=== PATIENT | female | born 1950 | race Caucasian/White ===

== ENCOUNTER 2016-11-15 06:59 | Day surgery (SDC) | payer MEDICARE, OTHER ==
[~2016-11-15] VITALS: Ht 162.6 cm; Wt 82.8 kg
[~2016-11-15 06:59] MED LIST: ETOD500T2 PO
[2016-11-15 08:06] VITALS: Ht 162.6 cm; Wt 82.8 kg
[2016-11-15] MEDS ORDERED: MELOXICAM (08:13)
[2016-11-15 09:18] VITALS: BP 133/75; PULSE 80; RESP 18
[2016-11-15 10:10] VITALS: BP 110/66; RESP 20
[2016-11-15] MEDS ORDERED: MIDAZOLAM 1 MG/ML 2 ML INJ ONE ×2 (10:19)
[2016-11-15] MEDS ORDERED: FENTAnyl 50 MCG/ML VIAL ONE (10:19)
--- NOTE | 2016-11-16 04:48 | GILP ---
DATE OF PROCEDURE: PROCEDURE: Colonoscopy and biopsy. PREOPERATIVE DIAGNOSIS: The patient presenting with history of no GI problems. This is a screening colonoscopy to rule out colon polyps. POSTOPERATIVE DIAGNOSES: 1. A 5 mm flat polyp was noted in the proximal transverse colon. This was removed with help of bio psy forceps and a Hemoclip was applied to prevent bleeding. 2. Diverticulosis. 3. Minimal external hemorrhoids. DESCRIPTION OF PROCEDURE: After the informed written consent was obtained, the patient was asked to lie on the left lateral side. The patient was given 3 mg of Versed and 100 mcg of fentanyl. When the patient became somnolent, the Olympus video colonoscope was introduced into the rectum and scope was advanced all the way to the cecum. A 5 mm flat polyp was noted in the proximal transverse colo n. This appeared to be benign. Two biopsies were obtained and polyp was removed. Minimal oozing o f the blood was noted, hence, one Hemoclip was applied. Significant diverticulosis noted in the leyla cending colon. Rest of the colon up to the cecum appeared normal. On the way out, no additional ab normalities detected and retroflexion was performed and no internal hemorrhoids noted. When the sco pe was withdrawn, external hemorrhoids were noted as well and this is minimal and small in size. No bleeding. Scope was withdrawn and the procedure was terminated. PLAN: 1. Recommend wait for the pathology report. 2. Repeat colonoscopy in 5 years. Dictated By: LYNN AQUINO/ANGE Conf#: [id number] DID#: [id number] CC: Dr. Roland;*End*
== END 2016-11-15 13:19 | disposition home or self-care (01) ==
LOC: GIL 06:59
PROVIDERS: ATTEND Internal Medicine Gastroenterology
DX: R19.4 Change in bowel habit (principal); D12.3 Benign neoplasm of transverse colon; K64.4 Residual hemorrhoidal skin tags; K57.90 Diverticulosis of intestine, part unspecified, without perforation or abscess without bleeding
CPT/HCPCS: 45380; 88305; J2250; J3010

== ENCOUNTER → 2018-02-06 | Outpatient (CLI) | END | disposition home or self-care (01) ==

== ENCOUNTER → 2018-05-22 | Outpatient (CLI) | END | disposition home or self-care (01) ==

== ENCOUNTER → 2018-09-08 | Outpatient (CLI) | payer MEDICARE, OTHER ==
[~2018-09-08] MED LIST changes: -ETOD500T2 PO; +MELOXICAM
--- NOTE | 2018-09-08 18:36 | CONS ---
Consult Date/Type/Reason Admit Date/Time Initial Consult Date Date/Time of Note DATE: 09/08/18 TIME: 18:31 Subjective Patricia Armstrong is here today with osteoarthritis of the left knee. The patient has been having problems for the last several years. The patient rates the pain 9/10. The patient has failed conservative therapy. The patient is here for a preoperative visit. Objective Exam General: Alert, oriented x3. No Acute Distress. Heart: Regular rate and rhythm. Lungs: No respiratory distress. No accessory muscle use. Musculoskeletal: Left Knee This is a well developed female who is alert, oriented times three and in no apparent distress. Skin is intact over the left knee as well as the lower extremity with no abrasions, lacerations, or ulcerations. Observation of the patient's gait reveals an antalgic gait with Varus thrust. Frontal plane alignment is varus. There is pain on palpation of medial greater than lateral joint line. The patient demonstrates grinding anteriorly with ROM. Range of motion: 0 extension to approximately 130 degrees of flexion. Collateral ligament testing reveals pseudolaxity of the MCL at 30 degrees with some subluxation of the tibia, otherwise no instability with varus or valgus stress at 0 and 30 degrees of flexion. Negative Winston's and negative posterior drawer. Neurovascularly intact with 5/5 EHL/tibialis anterior/gastroc. Sensation intact to light touch in a sural, saphenous, deep peroneal, superficial peroneal, medial and lateral plantar nerve distribution. Palpable, symmetric dorsalis pedis and posterior tibial pulses in both lower extremities. Hip examination normal. Results/Medications Home Meds Reported Medications [Meloxicam] No Conflict Check 11/15/16 Assessment/Plan Hospital Course (Demo Recall) The patient has osteoarthritis of the left knee involving primarily the medial compartment(s). The patient has failed conservative treatment. Medical Clearance pending. Patient seen PCP on September 13 ----- A lengthy discussion ensued, where the patient was told that if and when the symptoms are intolerable, elective total knee replacement should be considered. The operative procedure was explained using diagrams and or three-dimensional models. The rehabilitation, the potential risks, benefits and alternatives were discussed at length. Specific risks discussed included but were not limited to excessive blood loss and the need for transfusion and therefore the risk of transmissible disease or transfusion reaction, deep infection and the potential need for repetitive debridements, implant removal, long-term antibiotic therapy, possibly requiring deep venous access, extensor mechanism complications, including subluxation or dislocation, disruption of the quadriceps or patellar tendon, fracture of the patella or avulsion of the tibial tuberosity, femoral, tibial or fibular fracture and the need for further surgery for fixation, neurovascular injury with temporary or permanent numbness, tingling, weakness or paralysis, arterial injury requiring surgery including possible amputation, deep venous thrombosis, pulmonary embolism and , persistent pain, weakness, or limp, late aseptic loosening and the need for revision, polyethylene wear- induced osteolysis and related problems, post-operative stiffness requiring closed manipulation, and finally, a wide variety of unanticipated medical problems. The opportunity to ask questions and address any concerns was provided. The patient would like to proceed with scheduling. Face to Face Evaluation for Home Health Care: This is to certify that after date of planned surgery patient will be in need of intermittent fpc care, physical therapy and/or occupational therapy as patient will be home bound. This patient is under my care and I have authorized the services on this plan of care and will periodically review the plan. Plan: Left TKA VTE risk stratification: Average. However patient states that she is allergic to aspirin. She gets a rash. This was many many years ago. VTE prophylaxis: If Patient is truly allergic to aspirin will give patient Lovenox for 2 weeks followed by a 10a inhibitor Diabetes management: None Pain control: Standard Telemetry: No MRSA: Pending JOSEF MARKS MD Sep 08, 2018 18:36
--- NOTE | 2018-09-13 13:54 | RADRPT ---
PROCEDURE: Limited x-ray of both lower extremities. CLINICAL INDICATION: Bilateral leg pain. TECHNIQUE: Single frontal view of both lower extremities was obtained from the hips to the calves. COMPARISON: None. FINDINGS: The right femur measures 55 cm. The left femur measures 57 cm. The right and left distal tibias are not included on the images. There are degenerative changes of both knees with bilateral medial joint compartment narrowing. IMPRESSION: 1. Right femur is shorter than left femur. 2. Degenerative changes of both knees with bilateral medial joint compartment narrowing. 3. The tibial lengths cannot be measured. RPTAT: QQ .Clifton Eagle MD, MD Date Time Electronically viewed and signed by .Clifton Eagle MD, on 09/13/2018 13:54 .R/
--- NOTE | 2018-09-13 13:55 | RADRPT ---
PROCEDURE: Limited x-ray of both lower extremities. CLINICAL INDICATION: Bilateral leg pain. TECHNIQUE: This is a limited study demonstrating only a frontal view of the mid pelvis and left hip . COMPARISON: None. FINDINGS: There is no gross abnormality of the visualized osseous structures. IMPRESSION: 1. Limited study with no gross abnormality. RPTAT: QQ .Clifton Eagle MD, MD Date Time Electronically viewed and signed by .Clifton Eagle MD, MD on 09/13/2018 13:55 .R/
--- NOTE | 2018-09-13 13:56 | RADRPT ---
PROCEDURE: Limited x-ray of both lower extremities. CLINICAL INDICATION: Bilateral leg pain. TECHNIQUE: This is a limited study due to patient motion. COMPARISON: None. FINDINGS: Limited study due to patient motion. IMPRESSION: 1. Limited study due to patient motion. The images will be reprocessed. RPTAT: QQ .Clifton Eagle MD, MD Date Time Electronically viewed and signed by .Clifton Eagle MD, on 09/13/2018 13:56 .R/
== END | disposition home or self-care (01) ==
LOC: HKI 13:48
PROVIDERS: ATTEND Orthopaedic Surgery Adult Reconstructive Orthopaedic Surgery
DX: M17.12 Unilateral primary osteoarthritis, left knee (principal)
CPT/HCPCS: 77073; G0463

== ENCOUNTER 2018-09-19 05:15 | Observation (INO) | payer MEDICARE, OTHER ==
[2018-09-11 13:33] VITALS: Ht 160 cm; Wt 81.4 kg
[~2018-09-19] VITALS: Ht 160 cm; Wt 81.4 kg
[2018-09-19] VITALS (21 sets, daily range): BP systolic 103–147; BP diastolic 54–87; PULSE 68–100; RESP 7–23
[2018-09-19] MEDS ORDERED: ACETAMINOPHEN 500 MG TAB PO ONE (06:00)
[2018-09-19] MEDS ORDERED: ACETAMINOPHEN 1000MG/100ML IV 100 ML IVPB ONE (06:00)
[2018-09-19] MEDS ORDERED: CELECOXIB 200 MG CAP PO ONE (06:00)
[2018-09-19] MEDS ORDERED: DEXAMETHASONE 4 MG/ML 1 ML INJ IV ONE (06:00)
[2018-09-19] MEDS ORDERED: LANSOPRAZOLE 30 MG CAP PO ONE (06:00)
[2018-09-19] MEDS ORDERED: ONDANSETRON 4 MG INJ IV ONE (06:00)
[2018-09-19] MEDS ORDERED: TRANEXAMIC ACID 1GM/100ML(PMX) 100 ML PRE-OP IVPB ONE (06:00)
[2018-09-19] MEDS ORDERED: CEFAZOLIN 2 GM/50 ML (PMX) 50 ML IVPB ONE (06:00)
[2018-09-19] MEDS: LACTATED RINGER'S 1,000 ML IV* SCH ×2 (06:00→14:00)
[2018-09-19] MEDS ORDERED: TRANEXAMIC ACID 1GM/100ML(PMX) 100 ML AT CLOSING IVPB ONE (06:00)
[2018-09-19] MEDS ORDERED: METH10TA5 PO (07:17)
[2018-09-19] MEDS ORDERED: CRES5 PO (07:18)
[2018-09-19] MEDS ORDERED: NORT10CA2 PO (07:20)
[2018-09-19] MEDS ORDERED: VITA200C45 PO (07:20)
[2018-09-19] MEDS ORDERED: ASCO500C7 PO (07:21)
[2018-09-19] MEDS ORDERED: CHOL100062 PO (07:21)
[2018-09-19] MEDS ORDERED: CALC500T91 PO (07:22)
--- NOTE | 2018-09-19 07:23 | PREAC ---
Date/Time of Note Date/Time of Note DATE: 09/19/18 TIME: 07:21 Anesthesia Eval and Record Evaluation Time Pre-Procedure Interview DATE: 09/19/18 TIME: 07:21 Age 68 Sex female NPO: 8 hrs Preoperative diagnosis left knee primary osteoarthritis Planned procedure left total knee arthroplasty Past Medical History Past Medical History: Includes Cardio: Dyslipidemia Endo: Hyperthyroid Musculoskeletal: Osteoarthritis Surgery & Anesthesia Issues No known issue Meds Anticoagulation: No Beta Byron within 24 hr: No Reason Beta Byron not given: Pt. not on B-Byron Reported Medications Ascorbic Acid* (Vitamin C*) 500 Mg Capsule.sa, 500 MG PO DAILY, CAP 09/19/18 Cholecalciferol* (Vitamin D3*) 1,000 Unit Tablet, 25 MCG PO DAILY, TAB 09/19/18 Vitamin E* (Vitamin E*) 200 Unit Capsule, 180 MG PO DAILY, CAP 09/19/18 Nortriptyline Hcl* (Nortriptyline Hcl*) 10 Mg Capsule, 10 MG PO HS, CAP 09/19/18 Rosuvastatin Calcium* (Crestor*) 5 Mg Tablet, 5 MG PO QHS, #30 TAB 09/19/18 Methimazole* (Methimazole*) 10 Mg Tablet, 10 MG PO DAILY, TAB 09/19/18 Discontinued Reported Medications [Meloxicam] No Conflict Check 11/15/16 Current Medications Lactated Ringer's 1,000 ml @ 125 mls/hr Q8H IV* ; Start 09/19/18 at 06:00; Stop 09/19/18 at 18:00 Meds reviewed: Yes Allergies Coded Allergies: No Known Allergy (Unverified , 09/19/18) Allergies Reviewed: Yes Labs/Studies Labs Reviewed: Reviewed by anesthesiologist Blood Bank Test 09/19/18 06:00 Blood Type O POSITIVE test: N/A Studies: ECG (nsr) Pre-procedure Exam Airway: Adequate mouth opening, Adequate thyromental dist Mallampati: Mallampati II Teeth: Normal Lung: Normal Heart: Normal ASA Physical Status ASA physical status: 2 Emergency: None Planned Anesthetic General/MAC: LMA Neuraxial: Spinal Planned Pain Management Sub-arachniod narcotics, Parenteral pain med Pre-operative Attestations Prior to commencing anesthesia and surgery, the patient was re-evaluated, there was verification of: *The patient's identity *The results of appropriate recent lab work and preoperative vital signs *The above evaluation not changing prior to induction *Anesthetic plan, risk benefits, alternative and complications discussed with patient/family; questions answered; patient/family understands, accepts and wishes to proceed. TASHA DAMIAN MD Sep 19, 2018 07:23
--- NOTE | 2018-09-19 07:26 | HPN ---
Date/Time of Note Date/Time of Note DATE: 09/19/18 TIME: 07:26 Interval H&P Admission Note Pt. seen H&P reviewed: No system changes Patient denies fever, chills, shortness of breath, chest pain, nausea/vomiting, constipation, diarrhea, numbness, and tingling. MUSCULOSKELETAL: Left lower extremity Skin intact Sensation intact to light touch in a sural, saphenous, deep peroneal, superficial peroneal, medial and lateral plantar nerve distribution. Motor is intact, patient able to dorsiflex and plantarflex ankle and extend and flex great toe. Dorsalis Pedis pulse +2, Brisk capillary refill. Compartments are soft. Calves non-tender to palpation bilaterally. JOSEF MARKS MD Sep 19, 2018 07:26
[2018-09-19] MEDS ORDERED: HYDROmorphONE 1 MG/5 ML IV SYRINGE IV PRN ×3 (07:30)
[2018-09-19] MEDS ORDERED: MEPERIDINE 25 MG INJ IV PRN (07:30)
[2018-09-19] MEDS ORDERED: ONDANSETRON 4 MG INJ IV PRN (07:30)
[2018-09-19] MEDS ORDERED: FENTAnyl 50 MCG/ML VIAL IV PRN (07:30)
[2018-09-19] MEDS ORDERED: EPHEDrine SULFATE 50 MG/5 ML SYG IV PRN (07:30)
[2018-09-19] MEDS ORDERED: LABETALOL HCL 20MG INJ IV PRN (07:30)
[2018-09-19] MEDS ORDERED: PROCHLORPERAZINE 10 MG INJ IV PRN (07:30)
[2018-09-19] MEDS ORDERED: DIPHENHYDRAMINE 50 MG INJ IV PRN ×2 (07:30→11:30)
[2018-09-19] MEDS ORDERED: TRANEXAMIC ACID 1GM/100ML(PMX) 200 ML ONE (07:30)
[2018-09-19] MEDS ORDERED: hydrALAzine 20 MG INJ IV PRN (07:30)
[2018-09-19] MEDS ORDERED: LIDOCAINE 2% (SDV) 5 ML INJ ONE (07:31)
[2018-09-19] MEDS ORDERED: PROPOFOL 20 ML ONE (07:31)
[2018-09-19] MEDS ORDERED: MIDAZOLAM 1 MG/ML 2 ML INJ ONE (07:32)
[2018-09-19] MEDS ORDERED: FENTAnyl 50 MCG/ML VIAL ONE ×2 (07:44→09:45)
[2018-09-19] MEDS ORDERED: CEFAZOLIN 1 GM INJ ONE (07:50)
[2018-09-19] MEDS ORDERED: PHENYLephrine (100 MCG/ML) 5ML SYG ONE (08:10)
[2018-09-19] MEDS ORDERED: ROPIVACAINE 0.2% 20 ML VIAL ONE (10:56)
--- NOTE | 2018-09-19 11:19 | OPR ---
Date/Time of Note Date/Time of Note DATE: 09/19/18 TIME: 11:16 Operative Report Procedure Date: Sep 19, 2018 Preoperative Diagnosis Left knee osteoarthritis Postoperative Diagnosis As above Operation/Procedure Performed Left total knee arthroplasty intraoperative use of medication Surgeon see signature line Lard Maker CHERYL Bertrand Anesthesia Type: MAC, spinal Tourniquet Time: 100 minutes Estimated Blood Loss: 10 - 50 ml's Transfusion none Specimen None Grafts/Implants Depuy Sigma Femur: size 2.5 PS Tibia: Size 2 Poly insert: size 2 PS, 12.5 mm thickness Patella: 32 mm Complications none Pt Condition Post Procedure: stable Disposition: PACU Procedure Description PREOP DIAGNOSIS: Left knee osteoarthritis POSTOP DIAGNOSIS: Same. SURGICAL PROCEDURE: Left total knee arthroplasty. Intraoperative use of navigation CPT CODE: 06357. INDICATIONS AND CONSENT: The patient is a 68 year-old woman, with an orthopaedic history consistent with progressively worsening knee pain. They have maximized nonoperative measures, which have included activity modification, medicines, intra-articular injec tions. On physical exam, they have very alignment, no previous open surgical scars. They have ROM 0-130 degrees, no gross ligamentous instability. No significant venous stasis or edema. Distally neurovascular intact. They were offered a knee replacement. A lengthy discussion ensued, where the patient was told that if and when the symptoms are intolerable, elective total knee replacement should be considered. The operative procedure was explained using diagrams and or three-dimensional models. The rehabilitation, the potential risks, benefits and alternatives were discussed at length. Specific risks discussed included but were not limited to excessive blood loss and the need for transfusion and therefore the risk of transmissible disease or transfusion reaction, deep infection and the potential need for repetitive debridements, implant removal, long-term antibiotic therapy, possibly requiring deep venous access, extensor mechanism complications, including subluxation or dislocation, disruption of the quadriceps or patellar tendon, fracture of the patella or avulsion of the tibial tuberosity, femoral, tibial or fibular fracture and the need for further surgery for fixation, neurovascular injury with temporary or permanent numbness, tingling, weakness or paralysis, arterial injury requiring surgery including possible amputation, deep venous thrombosis, pulmonary embolism and , persistent pain, weakness, or limp, late aseptic loosening and the need for revision, polyethylene wear- induced osteolysis and related problems, post-operative stiffness requiring closed manipulation, and finally, a wide variety of unanticipated medical pro blems. The opportunity to ask questions and address any concerns was provided. The patient elected to proceed with TKA. FINDINGS: No SURGERY IN DETAIL: Patient was taken into the Operating Room, placed supine on the operating table. Preoperatively, they were given weight-based dosing of Ancef and if MRSA positive vancomycin was given in addition. Tourniquet was placed to the left proximal thigh. Regional anesthesia was administered by Anesthesia Department. Left lower extremity was prepped and draped in sterile fashion. Surgical pause was performed, correctly identifying the patient's name, medical record number, diagnoses, surgical procedure, and laterality of procedure. The leg was elevated, exsanguinated with an Esmarch, tourniquet was inflated to 250 mmHg, remained inflated for 100 minutes, after which it was deflated. An anterior midline incision approximately 15-20 cm in length was made, centered over the patella ending just medial to the tibial tubercle. Skin and subcutaneous tissue sharply dissected down the Sharron's fascia superiorly, which was incised in line with skin incision. The quadriceps tendon, medial patellar retinaculum, patellar tendon were visualized. A medial parapatellar arthrotomy was performed. The proximal medial tibia was subperiosteally exposed for a distance of 4 cm from joint line. The deep infrapatellar bursa was incised. The patella was everted and the knee was flexed, while protecting the insertion of patellar tendon. A 3/8-inch curved osteotome was used to enter the semimembranosus bursa at the level of the joint line medially. Medial meniscus was excised at the meniscal-synovial junction. The anterior cruciate ligament was excised. The posterior cruciate ligament was excised with electrocautery from the intercondylar region and a posterior retractor was placed, subluxating the tibia anterolateral to the femur. A hernia was made anterolateral to the lateral meniscus and a right-angle retractor was placed over the anterolateral tibia. A lateral meniscectomy was performed. The inferior lateral geniculate artery was coagulated. The tibia was reduced under the femur. An intramedullary pin was placed for the OrthAlign device. The OrthAlign navigation unit and sensor were calibrated at the back table. The OrthAlign femoral cutting jig was then placed over the central pin, and secured with a medial and lateral pin. The OrthAlign navigation unit and OrthAlign sensor were then attached to the jig. The leg was maneuvered for appropriate capture and calibration. After this was performed, the navigation unit was adjusted for a 0 varus/valgus (neutral mechanical axis) and 2.0-2.5 degree posterior flexion cut. The cutting jig was locked in place. The navigation and sensor unit were then removed. The distal femoral cut was set at 9 mm for the osteotomy . This was then secured with two pins. A distal femoral osteotomy was performed. The OrthAlign femoral jig was then removed. A posterior retractor was placed and an anterolateral retractor was placed on the tibia, subluxating the tibia anterior to the femur. The OrthAlign tibial cutting jig was then applied to the tibia preliminarily with the strap. This was secured with two pins centered over the medial 1/3 of the tibial tubercle. The offset was established proximally at the ACL footprint. This was then matched distally. Registration was then performed, registering the lateral malleolus and the medial malleolus. After this was performed, the malleolar probe was then utilized to help set the appropriate varus/valgus as well as tibial slope. This was then locked into position. The navigation guide and sensor were then removed. The slotted tibial cutting jig was then applied and secured with two pins. A proximal tibia osteotomy was performed. The tibia was then brought to full extension and a 10 mm spacer block was inserted, and felt to be satisfactory extension gap. The knee was flexed again and the tibial alignment guide was then removed. With the knee flexed to 90 degrees a femoral sizing jig was placed on the distal femur and secured, the femur sized to a size 2.5. Due to preoperative varus deformity, this was then set on 3 degrees of empiric external rotation, using the posterior condyles. This was parallel to the epicondylar axis. A size 2.5 4-in-1 femoral cutting block was then secured to the femur with two lock pins and an anterior, posterior condylar cut were performed, followed by an anterior chamfer and a posterior chamfer cut. Cutting block was removed. A 12.5 mm spacer was then inserted at 90 degrees of flexion and this was symmetric with the extension gap. An intercondylar box osteotomy was performed using the box cutting guide. A trial tibial base plate, size 2 with a posterior cruciate sacrificing polyethylene, and a trial size 2.5 femur were then inserted and the knee was brought to full extension. The patella was everted and the osteochondral junction was exposed. The patella measured 20 mm in thickness. A patellar osteotomy performed leaving 12.5 mm remnant patella. Three lug holes were drilled for the 32 mm diameter patellar button. The knee then underwent range of motion, soft tissue tension and patellar tracking, everything was symmetric balanced. The patella tracked centrally. The rotation of the tibial component was marked on the tibia. On the tibia, the modular base plate hole was created with the appropriate drills and punches at previously marked rotation. Exposed bony surfaces were thoroughly irrigated and dried. Periarticular injection administered. Cement with antibiotics was mixed at the back table. At the appropriate time and consistency cement was placed in the keel and onto the tibial plateau. Cement was finger pressurized. Cement was placed on the backside of the tibial component and along the keel. The tibial component was placed by hand into the keel and was then impacted and extruded cement removed. Cement was applied to exposed bone of the femur, as well as the posterior condylar portion prostheses, and the femoral component was inserted, extruded cement was then removed. The knee was brought to full extension. Cement was applied to the patella, as well as the patellar button, which was clamped into position. Extruded cement was removed. After the cement completely dried, the knee was flexed, the trial polyethylene was removed. Scored cement was removed. A tourniquet was deflated. Hemostasis was obtained. Pulse lavage was used to irrigate and remove any loose debris from posterior knee. A formal size 2, 12.5 mm polyethylene was inserted, confirmed seated and locked. The knee was reduced, hemostasis obtained. Copious amounts of irrigation was used with pulse lavage to remove and loose debris. The arthrotomy was closed with 1 PDS in a [id number], interrupted fashion, subcutaneous tissues irrigated, closed with 2-0 Vicryl in an inverted, interrupted fashion. The skin was closed with kamran. A sterile dressing was applied. Sponge, needle and instrument counts were correct at the end of the case. DISPOSITION: Patient transferred to PACU in stable condition. The patient will be weight bearing as tolerated on the operative extremity. PT will begin POD #0 if available. Postoperative AP and lateral of the operative knee will be ordered in PACU. Bilateral knee high SCDs will be worn while admitted. ASA 81mg BID will be given for DVT prophylaxis for 6 weeks. In her history she is stated previously she is allergic to aspirin. However she recently has taken aspirin with no adverse reaction. Therefore we will continue to use aspirin for DVT prophylaxis. Pain will be controlled with medication. The patient will follow up in clinic in approximately 2 weeks. ESTIMATED BLOOD LOSS: 30 mL. CULTURES: None. PATHOLOGY: Bone. IMPLANTS: Depuy Sigma Femur: size 2.5 PS Tibia: Size 2 Poly insert: size 2 PS, 12.5 mm thickness Patella: 32 mm NAME OF SURGEONS AND ASSISTANTS: Surgeon: Josef Alfonso MD Lard Maker: JOSEF Lima MD Sep 19, 2018 11:19
--- NOTE | 2018-09-19 11:29 | PAC ---
Date/Time of Note Date/Time of Note DATE: 09/19/18 TIME: 11:28 Post-Anesthesia Notes Post-Anesthesia Note Last documented vital signs Vital Signs Date Temp Pulse Resp B/P (MAP) Pulse Ox O2 O2 Flow FiO2 Time Delivery Rate 09/19/18 98.0 11:20 Activity: WNL Respiratory function: WNL Cardiovascular function: WNL Mental status: Baseline Pain reasonably controlled: Yes Hydration appropriate: Yes Nausea/Vomiting absent: Yes Comments BP: 121/87 HR: 99 RR: 15 T: 98 SaO2: 95% TASHA DAMIAN MD Sep 19, 2018 11:29
[2018-09-19] MEDS ORDERED: BETHANECHOL 25 MG TAB PO PRN (11:30)
[2018-09-19] MEDS ORDERED: BISACODYL 10 MG SUPP PR PRN (11:30)
[2018-09-19] MEDS ORDERED: oxyCODONE 5 MG TAB PO PRN (11:30)
[2018-09-19] MEDS ORDERED: MAGNESIUM HYDROXIDE 30ML CUP PO PRN (11:30)
[2018-09-19] MEDS ORDERED: NALOXONE (0.4 MG/ML) INJ IV PRN (11:30)
[2018-09-19] MEDS ORDERED: DOCUSATE SODIUM 100 MG CAP PO ONE (11:30)
[2018-09-19] MEDS ORDERED: NACL 0.9% 3 ML SYG IV SCH (11:30)
[2018-09-19] MEDS ORDERED: NA PHOSPHATE/BIPHOS 133 ML ENEMA PR PRN (11:30)
[2018-09-19] MEDS: LACTATED RINGER'S 1,000 ML IV SCH ×2 (11:54→23:54)
--- NOTE | 2018-09-19 11:59 | CONS ---
Assessment/Plan Assessment/Plan Hospital Course (Demo Recall) 68-year-old female with comorbidities including hyperthyroidism, dyslipidemia, and left knee osteoarthritis who underwent a left total knee arthroplasty and is being admitted to inpatient setting for further monitoring. 1. Left knee osteoarthritis. -Status post left total knee arthroplasty on 09/19/2018. -Continue pain control. -Weightbearing and physical therapy as per orthopedic surgery. -Anticoagulation as per orthopedic surgery. 2. Hyperthyroidism. -Resume Tapazole. 3. Dyslipidemia. -Resume statins. CODE STATUS: Full code. Diet: Regular diet. DVT prophylaxis: As per orthopedic surgery. Additional diagnostic and therapeutic orders will be added as clinically indicated. We will continue to follow the patient along with you. Thank you Dr. Alfonso for allowing us to take part in this patient's care. The patient was seen in collaboration with Dr. Mckenzie. Consultation Date/Type/Reason Admit Date/Time Sep 19, 2018 at 05:15 Date of Consultation: Sep 19, 2018 Type of Consult Medical. Reason for Consultation Medical management. Requesting Provider: JOSEF ALFONSO MD Date/Time of Note DATE: 09/19/18 TIME: 11:59 Hx of Present Illness This is a 68-year-old female with a past medical history of dyslipidemia, left knee osteoarthritis, and hyperthyroidism who was brought in electively for a left total knee arthroplasty. The patient underwent a left total knee arthroplasty on 09/19/2018. The patient is being admitted to inpatient setting for further monitoring. Hospitalist consult was obtained for medical management. Constitutional: no complaints Eyes: no complaints ENT: no complaints Respiratory: no complaints Cardiovascular: no complaints Gastrointestinal: no complaints Genitourinary: no complaints Musculoskeletal: bone/joint pain Skin: no complaints Neurologic: no complaints Endocrine: no complaints Psychological: no complaints Immunologic: no complaints Past Medical History 1. Dyslipidemia. 2. Hyperthyroidism. Home Meds Reported Medications Calcium Carbonate ([id number]) 500 Mg Tablet, 600 MG PO DAILY, TAB 09/19/18 Ascorbic Acid* (Vitamin C*) 500 Mg Capsule.sa, 500 MG PO DAILY, CAP 09/19/18 Cholecalciferol* (Vitamin D3*) 1,000 Unit Tablet, 25 MCG PO DAILY, TAB 09/19/18 Vitamin E* (Vitamin E*) 200 Unit Capsule, 180 MG PO DAILY, CAP 09/19/18 Nortriptyline Hcl* (Nortriptyline Hcl*) 10 Mg Capsule, 10 MG PO HS, CAP 09/19/18 Rosuvastatin Calcium* (Crestor*) 5 Mg Tablet, 5 MG PO QHS, #30 TAB 09/19/18 Methimazole* (Methimazole*) 10 Mg Tablet, 10 MG PO DAILY, TAB 09/19/18 Discontinued Reported Medications [Meloxicam] No Conflict Check 11/15/16 Medications Current Medications Lactated Ringer's 1,000 ml @ 125 mls/hr Q8H IV* ; Start 09/19/18 at 06:00; Stop 09/19/18 at 18:00 Hydromorphone HCl (Dilaudid) 0.2 mg PACU PRN IV MILD PAIN 1-3; Start 09/19/18 at 07:30; Stop 09/19/18 at 15:00 Hydromorphone HCl (Dilaudid) 0.4 mg PACU PRN IV MOD PAIN 4-6; Start 09/19/18 at 07:30; Stop 09/19/18 at 15:00 Hydromorphone HCl (Dilaudid) 0.6 mg PACU PRN IV SEVERE PAIN 7-10; Start 09/19/18 at 07:30; Stop 09/19/18 at 15:00 Fentanyl (Sublimaze) 25 mcg PACU ORDER PRN IV MILD PAIN 1-3; Start 09/19/18 at 07:30; Stop 09/19/18 at 15:00 Ondansetron HCl (Zofran Inj) 4 mg PACU ORDER PRN IV NAUSEA/VOMITING; Start 09/19/18 at 07:30; Stop 09/19/18 at 15:00 Prochlorperazine (Compazine Inj) 5 mg PACU ORDER PRN IV NAUSEA/VOMITING; Start 09/19/18 at 07:30; Stop 09/19/18 at 15:00 Labetalol HCl (Labetalol) 5 mg PACU ORDER PRN IV HIGH BLOOD PRESSURE; Start 09/19/18 at 07:30; Stop 09/19/18 at 15:00 Hydralazine HCl (Apresoline) 5 mg PACU ORDER PRN IV HIGH BLOOD PRESSURE; Start 09/19/18 at 07:30; Stop 09/19/18 at 15:00 Ephedrine Sulfate 5 mg PACU ORDER PRN IV BLOOD PRESSURE SUPPORT; Start 09/19/18 at 07:30; Stop 09/19/18 at 15:00 Meperidine HCl (Demerol) 25 mg PACU ORDER PRN IV .RIGORS; Start 09/19/18 at 07:30; Stop 09/19/18 at 15:00 Diphenhydramine HCl (Benadryl) 25 mg PACU ORDER PRN IV .PRURITUS; Start 09/19/18 at 07:30; Stop 09/19/18 at 15:00 Lactated Ringer's 1,000 ml @ 80 mls/hr [id number] IV ; Start 09/19/18 at 11:05; Status UNV IV Flush (NS 3 ml) 3 ml PER PROTOCOL IV ; Start 09/19/18 at 11:30; Status UNV Oxycodone HCl (Roxicodone) 15 mg Q4H PRN PO .PAIN; Start 09/19/18 at 11:30; Status UNV Oxycodone HCl (Roxicodone) 10 mg Q4H PRN PO .PAIN; Start 09/19/18 at 11:30; Status UNV Oxycodone HCl (Roxicodone) 5 mg Q4H PRN PO .PAIN; Start 09/19/18 at 11:30; Status UNV Hydromorphone HCl (Dilaudid) 1 mg Q3H PRN IV .BREAKTHROUGH PAIN; Start 09/19/18 at 11:30; Status UNV Acetaminophen (Tylenol Tab) 1,000 mg Q8 PO ; Start 09/20/18 at 14:00; Status UNV Ondansetron HCl (Zofran Inj) 4 mg Q4H PRN IV NAUSEA/VOMITING; Start 09/20/18 at 11:30; Status UNV Cefazolin Sodium/ Dextrose 50 ml @ 100 mls/hr Q8H IVPB ; Start 09/19/18 at 11:30; Stop 09/20/18 at 03:59; Status UNV Gabapentin (Neurontin) 300 mg QHS PO ; Start 09/19/18 at 21:00; Status UNV Pantoprazole (Protonix Tab) 40 mg DAILY@06 PO ; Start 09/21/18 at 06:00; Status UNV Docusate Sodium (Colace) 200 mg NOW ONCE PO ; Start 09/19/18 at 11:30; Stop 09/19/18 at 11:31; Status UNV Docusate Sodium (Colace) 200 mg BID PO ; Start 09/20/18 at 09:00; Stop 09/23/18 at 08:59; Status UNV Simethicone (Mylicon) 80 mg TID PRN PO .GAS; Start 09/19/18 at 11:30; Status UNV Senna/Docusate Sodium (Senokot-S) 2 tab BID PRN PO .CONSTIPATION; Start 09/19/18 at 11:30; Status UNV Magnesium Hydroxide (Milk Of Mag) 30 ml HS PRN PO .CONSTIPATION; Start 09/19/18 at 11:30; Status UNV Bisacodyl (Dulcolax Supp) 10 mg DAILY PRN AR .CONSTIPATION; Start 09/19/18 at 11:30; Status UNV Sodium Biphosphate/ Sodium Phosphate (Fleet Enema) 133 ml DAILY PRN AR .CONSTIPATION; Start 09/19/18 at 11:30; Status UNV Diphenhydramine HCl (Benadryl) 25 mg Q4H PRN IV .ITCHING; Start 09/19/18 at 11:30; Status UNV Naloxone HCl (Narcan) 0.2 mg Q2M PRN IV .RESP RATE; Start 09/19/18 at 11:30; Status UNV Bethanechol Chloride (Urecholine) 25 mg URINARY CATH D/C PRN PO UNABLE TO VOID; Start 09/19/18 at 11:30; Status UNV Aspirin (Halfprin) 81 mg BID PO ; Start 09/20/18 at 09:00; Status UNV Allergies: Coded Allergies: No Known Allergy (Unverified , 09/19/18) Past Surgical History Past Surgical Hx: other (Right knee arthroscopy.) Social History The patient lives at home with her family. Alcohol Use: none Smoking Status: Never smoker Drug Use: none Exam/Review of Systems Exam Vitals Vital Signs Date Temp Pulse Resp B/P (MAP) Pulse Ox O2 O2 Flow FiO2 Time Delivery Rate 09/19/18 98.0 11:20 Exam General: Adequately build 68 year-old female lying in bed in no apparent distress. HEENT: Normocephalic, atraumatic. Eyes: Anicteric sclerae, conjunctivae clear. ENT: Nasal septum midline, oral mucosa moist. Neck supple, no JVD noticed. Respiratory: Bilaterally diminished breath sounds. No use of accessory muscles of respiration. No adventitious breath sounds. Cardiovascular: S1, S2 heard. Regular rate and rhythm. Abdomen: Soft, nontender, and nondistended. Bowel sounds positive in all 4 quadrants. Genitourinary: Deferred. Extremities: No cyanosis, no clubbing, no edema. Left knee surgical dressing. Peripheral pulses palpable. Neurologic: Cranial nerves II through XII grossly intact. The patient is awake, alert, and oriented. Skin: Normal skin turgor. No skin rashes. Medications Medication Current Medications Lactated Ringer's 1,000 ml @ 125 mls/hr Q8H IV* ; Start 09/19/18 at 06:00; Stop 09/19/18 at 18:00 Hydromorphone HCl (Dilaudid) 0.2 mg PACU PRN IV MILD PAIN 1-3; Start 09/19/18 at 07:30; Stop 09/19/18 at 15:00 Hydromorphone HCl (Dilaudid) 0.4 mg PACU PRN IV MOD PAIN 4-6; Start 09/19/18 at 07:30; Stop 09/19/18 at 15:00 Hydromorphone HCl (Dilaudid) 0.6 mg PACU PRN IV SEVERE PAIN 7-10; Start 09/19/18 at 07:30; Stop 09/19/18 at 15:00 Fentanyl (Sublimaze) 25 mcg PACU ORDER PRN IV MILD PAIN 1-3; Start 09/19/18 at 07:30; Stop 09/19/18 at 15:00 Ondansetron HCl (Zofran Inj) 4 mg PACU ORDER PRN IV NAUSEA/VOMITING; Start 09/19/18 at 07:30; Stop 09/19/18 at 15:00 Prochlorperazine (Compazine Inj) 5 mg PACU ORDER PRN IV NAUSEA/VOMITING; Start 09/19/18 at 07:30; Stop 09/19/18 at 15:00 Labetalol HCl (Labetalol) 5 mg PACU ORDER PRN IV HIGH BLOOD PRESSURE; Start 09/19/18 at 07:30; Stop 09/19/18 at 15:00 Hydralazine HCl (Apresoline) 5 mg PACU ORDER PRN IV HIGH BLOOD PRESSURE; Start 09/19/18 at 07:30; Stop 09/19/18 at 15:00 Ephedrine Sulfate 5 mg PACU ORDER PRN IV BLOOD PRESSURE SUPPORT; Start 09/19/18 at 07:30; Stop 09/19/18 at 15:00 Meperidine HCl (Demerol) 25 mg PACU ORDER PRN IV .RIGORS; Start 09/19/18 at 07:30; Stop 09/19/18 at 15:00 Diphenhydramine HCl (Benadryl) 25 mg PACU ORDER PRN IV .PRURITUS; Start 09/19/18 at 07:30; Stop 09/19/18 at 15:00 Lactated Ringer's 1,000 ml @ 80 mls/hr [id number] IV ; Start 09/19/18 at 11:05; Status UNV IV Flush (NS 3 ml) 3 ml PER PROTOCOL IV ; Start 09/19/18 at 11:30; Status UNV Oxycodone HCl (Roxicodone) 15 mg Q4H PRN PO .PAIN; Start 09/19/18 at 11:30; Status UNV Oxycodone HCl (Roxicodone) 10 mg Q4H PRN PO .PAIN; Start 09/19/18 at 11:30; Status UNV Oxycodone HCl (Roxicodone) 5 mg Q4H PRN PO .PAIN; Start 09/19/18 at 11:30; Status UNV Hydromorphone HCl (Dilaudid) 1 mg Q3H PRN IV .BREAKTHROUGH PAIN; Start 09/19/18 at 11:30; Status UNV Acetaminophen (Tylenol Tab) 1,000 mg Q8 PO ; Start 09/20/18 at 14:00; Status UN V Ondansetron HCl (Zofran Inj) 4 mg Q4H PRN IV NAUSEA/VOMITING; Start 09/20/18 at 11:30; Status UNV Cefazolin Sodium/ Dextrose 50 ml @ 100 mls/hr Q8H IVPB ; Start 09/19/18 at 11:30; Stop 09/20/18 at 03:59; Status UNV Gabapentin (Neurontin) 300 mg QHS PO ; Start 09/19/18 at 21:00; Status UNV Pantoprazole (Protonix Tab) 40 mg DAILY@06 PO ; Start 09/21/18 at 06:00; Status UNV Docusate Sodium (Colace) 200 mg NOW ONCE PO ; Start 09/19/18 at 11:30; Stop 09/19/18 at 11:31; Status UNV Docusate Sodium (Colace) 200 mg BID PO ; Start 09/20/18 at 09:00; Stop 09/23/18 at 08:59; Status UNV Simethicone (Mylicon) 80 mg TID PRN PO .GAS; Start 09/19/18 at 11:30; Status UNV Senna/Docusate Sodium (Senokot-S) 2 tab BID PRN PO .CONSTIPATION; Start 09/19/18 at 11:30; Status UNV Magnesium Hydroxide (Milk Of Mag) 30 ml HS PRN PO .CONSTIPATION; Start 09/19/18 at 11:30; Status UNV Bisacodyl (Dulcolax Supp) 10 mg DAILY PRN AR .CONSTIPATION; Start 09/19/18 at 11:30; Status UNV Sodium Biphosphate/ Sodium Phosphate (Fleet Enema) 133 ml DAILY PRN AR .CONSTIPATION; Start 09/19/18 at 11:30; Status UNV Diphenhydramine HCl (Benadryl) 25 mg Q4H PRN IV .ITCHING; Start 09/19/18 at 11:30; Status UNV Naloxone HCl (Narcan) 0.2 mg Q2M PRN IV .RESP RATE; Start 09/19/18 at 11:30; St at[facility] UNV Bethanechol Chloride (Urecholine) 25 mg URINARY CATH D/C PRN PO UNABLE TO VOID; Start 09/19/18 at 11:30; Status UNV Aspirin (Halfprin) 81 mg BID PO ; Start 09/20/18 at 09:00; Status UNV JARRED SALMERON NP Sep 19, 2018 11:59
[2018-09-19] MEDS ORDERED: CEFAZOLIN 2 GM/50 ML (PMX) 50 ML IVPB SCH (12:00)
[2018-09-19] MEDS: CEFAZOLIN 2 GM/50 ML (PMX) 50 ML IVPB SCH ×2 (14:16→23:53)
[2018-09-19] MEDS: HYDROmorphONE 1 MG/ML SYG IV PRN (15:12)
[2018-09-19] MEDS: oxyCODONE 5 MG TAB PO PRN (20:48)
[2018-09-19] MEDS: ATORVASTATIN 20 MG TAB PO SCH (20:49)
[2018-09-19] MEDS: GABAPENTIN 300 MG CAP PO SCH (20:49)
[2018-09-19] MEDS: NORTRIPTYLINE 10 MG CAP PO SCH (20:49)
[2018-09-20 00:18] VITALS: BP 119/56; PULSE 58; RESP 19
[2018-09-20 04:42] VITALS: BP 117/56; PULSE 55; RESP 18
[2018-09-20] MEDS: oxyCODONE 5 MG TAB PO PRN ×2 (06:17→21:17)
[2018-09-20 07:36] VITALS: BP 135/60; PULSE 72; RESP 18
[2018-09-20] MEDS: METHIMAZOLE 5 MG TAB PO SCH (09:13)
[2018-09-20] MEDS: ASPIRIN (EC) 81 MG TAB PO SCH ×2 (09:13→21:21)
[2018-09-20] MEDS: ASCORBIC ACID 500 MG TAB PO SCH (09:13)
[2018-09-20] MEDS: DOCUSATE SODIUM 100 MG CAP PO SCH ×2 (09:13→21:18)
[2018-09-20] MEDS: CEFAZOLIN 2 GM/50 ML (PMX) 50 ML IVPB SCH (09:14)
[2018-09-20] MEDS: CALCIUM CARBONATE (600 MG CA) TAB PO SCH (09:14)
[2018-09-20] MEDS: HYDROmorphONE 1 MG/ML SYG IV PRN (09:22)
--- NOTE | 2018-09-20 10:03 | CONS ---
Assessment/Plan Assessment/Plan Hospital Course (Demo Recall) SUBJECTIVE: Left knee pain well controlled. OBJECTIVE: Physical Exam General: Adequately build 68 year-old female lying in bed in no apparent distress. HEENT: Normocephalic, atraumatic. Eyes: Anicteric sclerae, conjunctivae clear. ENT: Nasal septum midline, oral mucosa moist. Neck supple, no JVD noticed. Respiratory: Bilaterally diminished breath sounds. No use of accessory muscles of respiration. No adventitious breath sounds. Cardiovascular: S1, S2 heard. Regular rate and rhythm. Abdomen: Soft, nontender, and nondistended. Bowel sounds positive in all 4 quadrants. Genitourinary: Deferred. Extremities: No cyanosis, no clubbing, no edema. Left knee surgical dressing. Peripheral pulses palpable. Neurologic: Cranial nerves II through XII grossly intact. The patient is awake, alert, and oriented. Skin: Normal skin turgor. No skin rashes. Labs & Vitals per chart ASSESSMENT & PLAN 68-year-old female with comorbidities including hyperthyroidism, dyslipidemia, and left knee osteoarthritis who underwent a left total knee arthroplasty and was admitted to inpatient setting for further monitoring. 1. Left knee osteoarthritis. -Status post left total knee arthroplasty on 09/19/2018. -Continue pain control. -Weightbearing and physical therapy as per orthopedic surgery. -Anticoagulation as per orthopedic surgery. 2. Hyperthyroidism. -Continue Tapazole. 3. Dyslipidemia. -Continue statins. -Fasting lipid panel satisfactory. CODE STATUS: Full code. Diet: Regular diet. DVT prophylaxis: As per orthopedic surgery. Additional diagnostic and therapeutic orders will be added as clinically indicated. We will continue to follow the patient along with you. Thank you Dr. Alfonso for allowing us to take part in this patient's care. The patient was seen in collaboration with Dr. Mckenzie. Consultation Date/Type/Reason Admit Date/Time Sep 19, 2018 at 05:15 Initial Consult Date 09/19/18 Type of Consult Medical. Reason for Consultation Medical management. Requesting Provider: JOSEF ALFONSO MD Date/Time of Note DATE: 09/20/18 TIME: 10:01 Exam/Review of Systems Exam Vitals Vital Signs Date Temp Pulse Resp B/P (MAP) Pulse Ox O2 O2 Flow FiO2 Time Delivery Rate 09/20/18 97.6 72 18 135/60 94 07:36 (85) 09/20/18 Room Air 04:42 09/19/18 2.0 14:06 Intake and Output 09/19/18 09/19/18 09/20/18 1515:00 23:00 07:00 IntakeIntake Total 2970 ml 220 ml 1550 ml OutputOutput Total 2550 ml 1800 ml BalanceBalance 420 ml 220 ml -250 ml Results Result Diagram: 09/20/18 0441 09/20/18 0441 Results 24hrs Laboratory Tests Test 09/20/18 04:40 09/20/18 04:41 09/20/18 07:37 Urine Color YELLOW Urine Clarity CLEAR Urine pH 6.0 Urine Specific [place] 1.012 Urine Ketones NEGATIVE Urine Nitrite NEGATIVE Urine Bilirubin NEGATIVE Urine Urobilinogen NEGATIVE Urine Leukocyte Esterase TRACE A Urine Microscopic RBC 2 Urine Microscopic WBC 2 Urine Hemoglobin NEGATIVE Urine Glucose NEGATIVE Urine Total Protein NEGATIVE White Blood Count 12.9 H Red Blood Count 3.42 L Hemoglobin 9.7 L Hematocrit 31.2 L Mean Corpuscular Volume 91.2 Mean Corpuscular Hemoglobin 28.4 L Mean Corpuscular 31.1 L Hemoglobin Concent Red Cell Distribution Width 13.3 Platelet Count 299 Mean Platelet Volume 10.5 H Immature Granulocytes % 0.300 Neutrophils % 82.7 H Lymphocytes % 11.6 L Monocytes % 5.2 Eosinophils % 0.0 Basophils % 0.2 Nucleated Red Blood Cells % 0.0 Immature Granulocytes # 0.040 H Neutrophils # 10.7 H Lymphocytes # 1.5 Monocytes # 0.7 Eosinophils # 0.0 Basophils # 0.0 Nucleated Red Blood Cells # 0.0 Sodium Level 140 Potassium Level 4.4 Chloride Level 104 Carbon Dioxide Level 27 Anion Gap 9 Blood Urea Nitrogen 9 Creatinine 0.66 Est Glomerular Filtrat > 60 Rate mL/min Glucose Level 130 Calcium Level 8.9 Phosphorus Level 3.6 Magnesium Level 2.1 Triglycerides Level 92 Cholesterol Level 114 LDL Cholesterol, Calculated 39 HDL Cholesterol 57 Cholesterol/HDL Ratio 2.0 Thyroid Stimulating Hormone (TSH) 0.904 Free Thyroxine 0.74 L Lab Scanned Report [facility] LAB Medications Medication Current Medications Lactated Ringer's 1,000 ml @ 80 mls/hr [id number] IV Last administered on 09/19/18at 23:54; Admin Dose 80 MLS/HR; Start 09/19/18 at 11:05 IV Flush (NS 3 ml) 3 ml PER PROTOCOL IV ; Start 09/19/18 at 11:30 Oxycodone HCl (Roxicodone) 15 mg Q4H PRN PO .PAIN; Start 09/19/18 at 11:30 Oxycodone HCl (Roxicodone) 10 mg Q4H PRN PO .PAIN Last administered on 09/20/18at 06:17; Admin Dose 10 MG; Start 09/19/18 at 11:30 Oxycodone HCl (Roxicodone) 5 mg Q4H PRN PO .PAIN; Start 09/19/18 at 11:30 Hydromorphone HCl (Dilaudid) 1 mg Q3H PRN IV .BREAKTHROUGH PAIN Last administered on 09/20/18at 09:22; Admin Dose 1 MG; Start 09/19/18 at 11:30 Acetaminophen (Tylenol Tab) 1,000 mg Q8 PO ; Start 09/20/18 at 14:00 Ondansetron HCl (Zofran Inj) 4 mg Q4H PRN IV NAUSEA/VOMITING; Start 09/20/18 at 11:30 Gabapentin (Neurontin) 300 mg QHS PO Last administered on 09/19/18at 20:49; Admin Dose 300 MG; Start 09/19/18 at 21:00 Pantoprazole (Protonix Tab) 40 mg DAILY@06 PO ; Start 09/21/18 at 06:00 Docusate Sodium (Colace) 200 mg BID PO Last administered on 09/20/18at 09:13; Admin Dose 200 MG; Start 09/20/18 at 09:00; Stop 09/23/18 at 08:59 Simethicone (Mylicon) 80 mg TID PRN PO .GAS; Start 09/19/18 at 11:30 Senna/Docusate Sodium (Senokot-S) 2 tab BID PRN PO .CONSTIPATION; Start 09/19/18 at 11:30 Magnesium Hydroxide (Milk Of Mag) 30 ml HS PRN PO .CONSTIPATION; Start 09/19/18 at 11:30 Bisacodyl (Dulcolax Supp) 10 mg DAILY PRN OR .CONSTIPATION; Start 09/19/18 at 11:30 Sodium Biphosphate/ Sodium Phosphate (Fleet Enema) 133 ml DAILY PRN OR .CONSTIPATION; Start 09/19/18 at 11:30 Diphenhydramine HCl (Benadryl) 25 mg Q4H PRN IV .ITCHING; Start 09/19/18 at 11:30 Naloxone HCl (Narcan) 0.2 mg Q2M PRN IV .RESP RATE; Start 09/19/18 at 11:30 Bethanechol Chloride (Urecholine) 25 mg URINARY CATH D/C PRN PO UNABLE TO VOID; Start 09/19/18 at 11:30 Aspirin (Halfprin) 81 mg BID PO Last administered on 09/20/18 09:13; Admin Dose 81 MG; Start 09/20/18 at 09:00 Ascorbic Acid (Vitamin C) 500 mg DAILY PO Last administered on 09/20/18 09:13; Admin Dose 500 MG; Start 09/20/18 at 09:00 Calcium Carbonate (Caltrate-600) 600 mg DAILY PO Last administered on 09/20/18 09:14; Admin Dose 600 MG; Start 09/20/18 at 09:00 Methimazole (Tapazole) 10 mg DAILY PO Last administered on 09/20/18 09:13; Admin Dose 10 MG; Start 09/20/18 at 09:00 Nortriptyline HCl (Aventyl) 10 mg HS PO Last administered on 09/19/18 20:49; Admin Dose 10 MG; Start 09/19/18 at 21:00 Atorvastatin Calcium (Lipitor) 20 mg DAILY@21 PO Last administered on 09/19/18 20:49; Admin Dose 20 MG; Start 09/19/18 at 21:00 JARRED SALMERON NP Sep 20, 2018 10:03
[2018-09-20] MEDS ORDERED: ONDANSETRON 4 MG INJ IV PRN (11:30)
[2018-09-20] MEDS: LACTATED RINGER'S 1,000 ML IV SCH (12:05)
[2018-09-20] MEDS ORDERED: DEXAMETHASONE 4 MG/ML 1 ML INJ IV ONE (13:30)
--- NOTE | 2018-09-20 13:31 | PN ---
Date/Time of Note Date/Time of Note DATE: 09/20/18 TIME: 13:30 Assessment/Plan Lines/Catheters IV Catheter Type (from Nrsg): Peripheral IV Cote in Place (from Nrsg): Yes Assessment/Plan Chief Complaint/Hosp Course POD#1 s/p primary left TKA -Post op H&H stable -PT/OT -Joints pain control protocol -DVT prophylaxis: SCD's, ASA 81 mg twice daily times 6 weeks -Weight bearing status: as tolerated -Post-op XR ordered -Abx: 24h vanc/ancef -Diet: ADAT -Cote: Discontinued -Discharge planning consult Planned Discharge Date: Today versus tomorrow Discharge to home with home health Subjective 24 Hr Interval Summary Patient doing well No acute events overnight Pain is well controlled Exam/Review of Systems Vital Signs Vitals Vital Signs Date Temp Pulse Resp B/P (MAP) Pulse Ox O2 O2 Flow FiO2 Time Delivery Rate 09/20/18 97.6 72 18 135/60 94 07:36 (85) 09/20/18 Room Air 04:42 09/19/18 2.0 14:06 Intake and Output 09/19/18 09/19/18 09/20/18 1515:00 23:00 07:00 IntakeIntake Total 2970 ml 220 ml 1550 ml OutputOutput Total 2550 ml 1800 ml BalanceBalance 420 ml 220 ml -250 ml Exam Free Text/Dictation Left lower extremity: Dressing: clean, dry, and intact, no erythema Sensation intact to light touch in a sural, saphenous, deep peroneal, superficial peroneal, medial and lateral plantar nerve distribution. Motor is intact, patient able to dorsiflex and plantarflex ankle and extend and flex great toe. Dorsalis Pedis pulse +2, Brisk capillary refill. Compartments are soft. Calves non-tender to palpation bilaterally. Results Result Diagram: 09/20/18 0441 09/20/18 0441 JOSEF MARKS MD Sep 20, 2018 13:31
[2018-09-20 13:34] VITALS: BP 117/59; PULSE 60; RESP 18
[2018-09-20] MEDS ORDERED: GABA300C16 PO (13:40)
[2018-09-20] MEDS ORDERED: ASPI-1044 PO (13:40)
[2018-09-20] MEDS ORDERED: OXYC-481 PO (13:40)
--- NOTE | 2018-09-20 13:41 | PDOCDIS ---
Discharge Instructions DIAGNOSIS Discharge Diagnosis Left Total knee replacement. Please see instructions from [facility] [place]. CONDITION [id number] Patient Condition: Uizew1t Good HOME CARE INSTRUCTIONS: [id number] Diet Instructions: [id number] Regular ACTIVITY: [id number] Activity Restrictions: [id number] No Restrictions FOLLOW UP/APPOINTMENTS Follow-up Plan f/u as scheduled JOSEF MARKS MD Sep 20, 2018 13:41
--- NOTE | 2018-09-20 13:43 | DS ---
Date/Time of Note Date/Time of Note DATE: 09/20/18 TIME: 13:42 Discharge Summary Admission/Discharge Info Admit Date/Time Sep 19, 2018 at 05:15 Discharge Date/Time Discharge Diagnosis Left Total knee replacement. Please see instructions from [facility] [place]. Hospital Course POD#2 s/p primary left TKA. Patient doing well. Patient tolerating PT. Medically stable to go home. Patient's pain is controlled and she is tolerating her diet at the time of discharge. -Post op H&H stable -PT/OT -Joints pain control protocol -DVT prophylaxis: SCD's, ASA 81 mg twice daily times 6 weeks -Weight bearing status: as tolerated Planned Discharge Date: Today Discharge to home with home health F/u in 2 weeks Home Meds Reported Medications Calcium Carbonate ([id number]) 500 Mg Tablet, 600 MG PO DAILY, TAB 09/19/18 Ascorbic Acid* (Vitamin C*) 500 Mg Capsule.sa, 500 MG PO DAILY, CAP 09/19/18 Cholecalciferol* (Vitamin D3*) 1,000 Unit Tablet, 25 MCG PO DAILY, TAB 09/19/18 Vitamin E* (Vitamin E*) 200 Unit Capsule, 180 MG PO DAILY, CAP 09/19/18 Nortriptyline Hcl* (Nortriptyline Hcl*) 10 Mg Capsule, 10 MG PO HS, CAP 09/19/18 Rosuvastatin Calcium* (Crestor*) 5 Mg Tablet, 5 MG PO QHS, #30 TAB 09/19/18 Methimazole* (Methimazole*) 10 Mg Tablet, 10 MG PO DAILY, TAB 09/19/18 Discontinued Reported Medications [Meloxicam] No Conflict Check 11/15/16 Follow-up Plan f/u as scheduled Primary Care Provider Not On Staff Doctor Pending Labs Laboratory Tests Test 09/20/18 04:40 09/20/18 04:41 09/20/18 07:37 Urine Color YELLOW (YELLOW) Urine Clarity CLEAR (CLEAR) Urine pH 6.0 (5.0-9.0) Urine Specific 1.012 (1.003-1.030) [place] Urine Ketones NEGATIVE mg/dL (NEGATIVE) Urine Nitrite NEGATIVE mg/dL (NEGATIVE) Urine Bilirubin NEGATIVE mg/dL (NEGATIVE) Urine Urobilinogen NEGATIVE mg/dL (NEGATIVE) Urine Leukocyte TRACE Esterase Saqib/ul (NEGATIVE) Urine Microscopic 2 /HPF (0-5) RBC Urine Microscopic 2 /HPF (0-5) WBC Urine Hemoglobin NEGATIVE mg/dL (NEGATIVE) Urine Glucose NEGATIVE mg/dL (NEGATIVE) Urine Total NEGATIVE Protein mg/dl (NEGATIVE) White Blood Count 12.9 10^3/ul (4.8-10.8) Red Blood Count 3.42 10^6/ul (4.20-5.40 ) Hemoglobin 9.7 g/dl (12.0-16.0) Hematocrit 31.2 % (37.0-47.0) Mean Corpuscular 91.2 Volume fl (82.0-101.0) Mean Corpuscular 28.4 Hemoglobin pg (29.0-33.0) Mean Corpuscular 31.1 Hemoglobin Concent g/dl (32.0-37.0) Red Cell 13.3 % (11.5-14.5) Distribution Width Platelet Count 299 10^3/UL (140-415) Mean Platelet 10.5 fl (7.4-10.4) Volume Immature 0.300 Granulocytes % % (0.001-0.429) Neutrophils % 82.7 % (39.0-77.0) Lymphocytes % 11.6 % (15.0-51.0) Monocytes % 5.2 % (0.0-11.0) Eosinophils % 0.0 % (0.0-7.0) Basophils % 0.2 % (0.0-2.0) Nucleated Red Blood 0.0 Cells % /100WBC (0.0-0.0) Immature 0.040 Granulocytes # 10^3/ul (0.0-0.031 ) Neutrophils # 10.7 10^3/ul (1.6-7.5) Lymphocytes # 1.5 10^3/ul (0.8-2.9) Monocytes # 0.7 10^3/ul (0.3-0.9) Eosinophils # 0.0 10^3/ul (0.0-0.5) Basophils # 0.0 10^3/ul (0.0-0.1) Nucleated Red Blood 0.0 Cells # 10^3/ul (0.0-0.0) Sodium Level 140 mmol/L (135-144) Potassium Level 4.4 mmol/L (3.5-5.1) Chloride Level 104 mmol/L (97-110) Carbon Dioxide 27 mmol/L (21-31) Level Anion Gap 9 (5-13) Blood Urea Nitrogen 9 mg/dl (7-20) Creatinine 0.66 mg/dl (0.44-1.00) Est Glomerular > 60 mL/min (>60) Filtrat Rate mL/min Glucose Level 130 mg/dl (70-220) Calcium Level 8.9 mg/dl (8.4-10.2) Phosphorus Level 3.6 mg/dl (2.5-4.9) Magnesium Level 2.1 mg/dl (1.7-2.5) Triglycerides 92 mg/dl (0-149) Level Cholesterol Level 114 mg/dl (100-200) LDL Cholesterol, 39 mg/dl Calculated HDL Cholesterol 57 mg/dl (35-98) Cholesterol/HDL 2.0 RATIO Ratio Thyroid Stimulating 0.904 Hormone (TSH) MIU/L (0.465-4.680 ) Free Thyroxine 0.74 ng/dl (0.78-2.44) Lab Scanned Report [facility] [id number] JOSEF MARKS MD Sep 20, 2018 13:43
[2018-09-20] MEDS: ACETAMINOPHEN 500 MG TAB PO SCH ×2 (13:45→21:17)
[2018-09-20 19:58] VITALS: BP 127/68; PULSE 78; RESP 18
[2018-09-20] MEDS: ATORVASTATIN 20 MG TAB PO SCH (21:17)
[2018-09-20] MEDS: SENNA/DOCUSATE NA (8.6MG/50MG) TAB PO PRN (21:17)
[2018-09-20] MEDS: GABAPENTIN 300 MG CAP PO SCH (21:17)
[2018-09-20] MEDS: NORTRIPTYLINE 10 MG CAP PO SCH (21:17)
[2018-09-21] MEDS: LACTATED RINGER'S 1,000 ML IV SCH ×2 (00:35→13:05)
[2018-09-21 02:00] VITALS: BP 138/72; PULSE 68; RESP 20
[2018-09-21] MEDS: PANTOPRAZOLE (EC) 40 MG TAB PO SCH (05:40)
[2018-09-21] MEDS: ACETAMINOPHEN 500 MG TAB PO SCH ×3 (05:41→21:46)
[2018-09-21 07:47] VITALS: BP 133/62; PULSE 79; RESP 18
[2018-09-21] MEDS: DOCUSATE SODIUM 100 MG CAP PO SCH ×2 (08:59→21:35)
[2018-09-21] MEDS: ASPIRIN (EC) 81 MG TAB PO SCH ×2 (08:59→21:36)
[2018-09-21] MEDS: ASCORBIC ACID 500 MG TAB PO SCH (09:00)
[2018-09-21] MEDS: METHIMAZOLE 5 MG TAB PO SCH (09:00)
[2018-09-21] MEDS: CALCIUM CARBONATE (600 MG CA) TAB PO SCH (09:00)
[2018-09-21] MEDS: SENNA/DOCUSATE NA (8.6MG/50MG) TAB PO PRN (09:00)
[2018-09-21] MEDS: oxyCODONE 5 MG TAB PO PRN ×3 (09:01→19:26)
[2018-09-21] MEDS: POLYETHYLENE GLYCOL 17 GM PACKET PO SCH ×2 (13:30→21:36)
--- NOTE | 2018-09-21 13:30 | CONS ---
Assessment/Plan Assessment/Plan Hospital Course (Demo Recall) SUBJECTIVE: Left knee pain well controlled. Constipated. Had some bleeding in the surgical dressing that was changed by the surgeon. OBJECTIVE: Physical Exam General: Adequately build 68 year-old female lying in bed in no apparent distress. HEENT: Normocephalic, atraumatic. Eyes: Anicteric sclerae, conjunctivae clear. ENT: Nasal septum midline, oral mucosa moist. Neck supple, no JVD noticed. Respiratory: Bilaterally diminished breath sounds. No use of accessory muscles of respiration. No adventitious breath sounds. Cardiovascular: S1, S2 heard. Regular rate and rhythm. Abdomen: Soft, nontender, and nondistended. Bowel sounds positive in all 4 quadrants. Genitourinary: Deferred. Extremities: No cyanosis, no clubbing, no edema. Left knee surgical dressing. Peripheral pulses palpable. Neurologic: Cranial nerves II through XII grossly intact. The patient is awake, alert, and oriented. Skin: Normal skin turgor. No skin rashes. Labs & Vitals per chart ASSESSMENT & PLAN 68-year-old female with comorbidities including hyperthyroidism, dyslipidemia, and left knee osteoarthritis who underwent a left total knee arthroplasty and was admitted to inpatient setting for further monitoring. 1. Left knee osteoarthritis. -Status post left total knee arthroplasty on 09/19/2018. -Continue pain control. -Weightbearing and physical therapy as per orthopedic surgery. -Anticoagulation as per orthopedic surgery. 2. Hyperthyroidism. -Continue Tapazole. 3. Dyslipidemia. -Continue statins. -Fasting lipid panel satisfactory. CODE STATUS: Full code. Diet: Regular diet. DVT prophylaxis: As per orthopedic surgery. Additional diagnostic and therapeutic orders will be added as clinically indicated. We will continue to follow the patient along with you. Thank you Dr. Alfonso for allowing us to take part in this patient's care. The patient was seen in collaboration with Dr. Mckenzie. Consultation Date/Type/Reason Admit Date/Time Sep 19, 2018 at 05:15 Initial Consult Date 09/19/18 Type of Consult Medical. Reason for Consultation Medical management. Requesting Provider: JOSEF ALFONSO MD Date/Time of Note DATE: 09/21/18 TIME: 13:28 Exam/Review of Systems Exam Vitals Vital Signs Date Temp Pulse Resp B/P (MAP) Pulse Ox O2 O2 Flow FiO2 Time Delivery Rate 09/21/18 97.7 79 18 133/62 95 Room Air 07:47 (85) 09/19/18 2.0 14:06 Intake and Output 09/20/18 09/20/18 09/21/18 1515:00 23:00 07:00 IntakeIntake Total 1410 ml 600 ml 300 ml OutputOutput Total 200 ml BalanceBalance 1210 ml 600 ml 300 ml Results Result Diagram: 09/21/18 0437 09/21/18 0437 Results 24hrs Laboratory Tests Test 09/21/18 04:37 White Blood Count 12.6 H Red Blood Count 3.09 L Hemoglobin 9.0 L Hematocrit 28.0 L Mean Corpuscular Volume 90.6 Mean Corpuscular Hemoglobin 29.1 Mean Corpuscular Hemoglobin Concent 32.1 Red Cell Distribution Width 13.4 Platelet Count 271 Mean Platelet Volume 11.2 H Immature Granulocytes % 0.600 H Neutrophils % 81.5 H Lymphocytes % 11.2 L Monocytes % 6.5 Eosinophils % 0.0 Basophils % 0.2 Nucleated Red Blood Cells % 0.0 Immature Granulocytes # 0.070 H Neutrophils # 10.2 H Lymphocytes # 1.4 Monocytes # 0.8 Eosinophils # 0.0 Basophils # 0.0 Nucleated Red Blood Cells # 0.0 Sodium Level 141 Potassium Level 4.5 Chloride Level 102 Carbon Dioxide Level 29 Anion Gap 10 Blood Urea Nitrogen 16 Creatinine 0.57 Est Glomerular Filtrat Rate mL/min > 60 Glucose Level 126 Calcium Level 9.1 Medications Medication Current Medications Lactated Ringer's 1,000 ml @ 80 mls/hr [id number] IV Last administered on 09/19/18at 23:54; Admin Dose 80 MLS/HR; Start 09/19/18 at 11:05 IV Flush (NS 3 ml) 3 ml PER PROTOCOL IV ; Start 09/19/18 at 11:30 Oxycodone HCl (Roxicodone) 15 mg Q4H PRN PO .PAIN Last administered on 09/20/18at 11:15; Admin Dose 15 MG; Start 09/19/18 at 11:30 Oxycodone HCl (Roxicodone) 10 mg Q4H PRN PO .PAIN Last administered on at 06:17; Admin Dose 10 MG; Start 09/19/18 at 11:30 Oxycodone HCl (Roxicodone) 5 mg Q4H PRN PO .PAIN Last administered on 09/21/18 11:42; Admin Dose 5 MG; Start 09/19/18 at 11:30 Hydromorphone HCl (Dilaudid) 1 mg Q3H PRN IV .BREAKTHROUGH PAIN Last administered on 09/20/18 09:22; Admin Dose 1 MG; Start 09/19/18 at 11:30 Acetaminophen (Tylenol Tab) 1,000 mg Q8 PO Last administered on 09/21/18 05:41; Admin Dose 1,000 MG; Start 09/20/18 at 14:00 Ondansetron HCl (Zofran Inj) 4 mg Q4H PRN IV NAUSEA/VOMITING; Start 09/20/18 at 11:30 Gabapentin (Neurontin) 300 mg QHS PO Last administered on 09/20/18 21:17; Admin Dose 300 MG; Start 09/19/18 at 21:00 Pantoprazole (Protonix Tab) 40 mg DAILY@06 PO Last administered on 09/21/18 05:40; Admin Dose 40 MG; Start 09/21/18 at 06:00 Docusate Sodium (Colace) 200 mg BID PO Last administered on 09/21/18 08:59; Admin Dose 200 MG; Start 09/20/18 at 09:00; Stop 09/23/18 at 08:59 Simethicone (Mylicon) 80 mg TID PRN PO .GAS; Start 09/19/18 at 11:30 Senna/Docusate Sodium (Senokot-S) 2 tab BID PRN PO .CONSTIPATION Last administered on 09/21/18 09:00; Admin Dose 2 TAB; Start 09/19/18 at 11:30 Magnesium Hydroxide (Milk Of Mag) 30 ml HS PRN PO .CONSTIPATION Last administered on 09/21/18 09:00; Admin Dose 30 ML; Start 09/19/18 at 11:30 Bisacodyl (Dulcolax Supp) 10 mg DAILY PRN [place] .CONSTIPATION; Start 09/19/18 at 11:30 Sodium Biphosphate/ Sodium Phosphate (Fleet Enema) 133 ml DAILY PRN [place] .CONSTIPATION; Start 09/19/18 at 11:30 Diphenhydramine HCl (Benadryl) 25 mg Q4H PRN IV .ITCHING; Start 09/19/18 at 11:30 Naloxone HCl (Narcan) 0.2 mg Q2M PRN IV .RESP RATE; Start 09/19/18 at 11:30 Bethanechol Chloride (Urecholine) 25 mg URINARY CATH D/C PRN PO UNABLE TO VOID; Start 09/19/18 at 11:30 Aspirin (Halfprin) 81 mg BID PO Last administered on 09/21/18 08:59; Admin Dose 81 MG; Start 09/20/18 at 09:00 Ascorbic Acid (Vitamin C) 500 mg DAILY PO Last administered on 09/21/18 09:00; Admin Dose 500 MG; Start 09/20/18 at 09:00 Calcium Carbonate (Caltrate-600) 600 mg DAILY PO Last administered on 09/20/18 09:14; Admin Dose 600 MG; Start 09/20/18 at 09:00 Methimazole (Tapazole) 10 mg DAILY PO Last administered on 09/21/18 09:00; Admin Dose 10 MG; Start 09/20/18 at 09:00 Nortriptyline HCl (Aventyl) 10 mg HS PO Last administered on 09/20/18 21:17; Admin Dose 10 MG; Start 09/19/18 at 21:00 Atorvastatin Calcium (Lipitor) 20 mg DAILY@21 PO Last administered on 09/20/18 21:17; Admin Dose 20 MG; Start 09/19/18 at 21:00 JARRED SALMERON NP Sep 21, 2018 13:30
[2018-09-21 14:03] VITALS: BP 136/66; PULSE 82; RESP 18
[2018-09-21] MEDS: NORTRIPTYLINE 10 MG CAP PO SCH (21:00)
[2018-09-21 21:06] VITALS: BP 132/64; PULSE 80; RESP 20
[2018-09-21] MEDS: GABAPENTIN 300 MG CAP PO SCH (21:36)
[2018-09-21] MEDS: ATORVASTATIN 20 MG TAB PO SCH (21:36)
[2018-09-22] MEDS: LACTATED RINGER'S 1,000 ML IV SCH (01:35)
[2018-09-22 02:31] VITALS: BP 134/72; PULSE 82; RESP 18
[2018-09-22] MEDS: PANTOPRAZOLE (EC) 40 MG TAB PO SCH (06:25)
[2018-09-22] MEDS: ACETAMINOPHEN 500 MG TAB PO SCH ×2 (06:25→13:44)
[2018-09-22] MEDS ORDERED: ASPI-1044 PO (07:57)
[2018-09-22 08:00] VITALS: BP 114/64; PULSE 93; RESP 18
--- NOTE | 2018-09-22 08:01 | PN ---
Date/Time of Note Date/Time of Note DATE: 09/22/18 TIME: 07:58 Assessment/Plan Lines/Catheters IV Catheter Type (from Nrsg): Saline Lock Cote in Place (from Nrsg): Yes Assessment/Plan Chief Complaint/Hosp Course POD#3 s/p primary left TKA. Patient doing well. Bleeding from superficial incision was stopped yesterday with light to moderate compression. Today her incision is clean, dry, intact. Patient tolerating PT. Medically stable to go home. Patient's pain is controlled and she is tolerating her diet at the time of discharge. -Post op H&H stable -PT/OT -Joints pain control protocol -DVT prophylaxis: SCD's, ASA 81 mg twice daily times 6 weeks -Weight bearing status: as tolerated Planned Discharge Date: Today Discharge to home with home health F/u in 2 weeks Subjective 24 Hr Interval Summary Patient doing well No acute events overnight Pain is well controlled Exam/Review of Systems Vital Signs Vitals Vital Signs Date Temp Pulse Resp B/P (MAP) Pulse Ox O2 O2 Flow FiO2 Time Delivery Rate 09/22/18 98.4 82 18 134/72 98 Room Air 02:31 (92) 09/19/18 2.0 14:06 Intake and Output 09/21/18 09/21/18 09/22/18 1515:00 23:00 07:00 IntakeIntake Total 500 ml OutputOutput Total 1 ml BalanceBalance -1 ml 500 ml Exam Free Text/Dictation Left lower extremity: Incision: Clean, dry, and intact, no erythema Sensation intact to light touch in a sural, saphenous, deep peroneal, superficial peroneal, medial and lateral plantar nerve distribution. Motor is intact, patient able to dorsiflex and plantarflex ankle and extend and flex great toe. Dorsalis Pedis pulse +2, Brisk capillary refill. Compartments are soft. Calves non-tender to palpation bilaterally. Results Result Diagram: 09/22/18 0427 09/22/18 0427 JOSEF MARKS MD Sep 22, 2018 08:01
[2018-09-22] MEDS: ASCORBIC ACID 500 MG TAB PO SCH (08:53)
[2018-09-22] MEDS: DOCUSATE SODIUM 100 MG CAP PO SCH (08:53)
[2018-09-22] MEDS: ASPIRIN (EC) 81 MG TAB PO SCH (08:53)
[2018-09-22] MEDS: POLYETHYLENE GLYCOL 17 GM PACKET PO SCH (08:54)
[2018-09-22] MEDS: METHIMAZOLE 5 MG TAB PO SCH (08:54)
[2018-09-22] MEDS: CALCIUM CARBONATE (600 MG CA) TAB PO SCH (09:00)
--- NOTE | 2018-09-22 09:06 | CONS ---
Assessment/Plan Assessment/Plan Hospital Course (Demo Recall) SUBJECTIVE: Left knee pain well controlled. OBJECTIVE: Physical Exam General: Adequately build 68 year-old female lying in bed in no apparent distres s. HEENT: Normocephalic, atraumatic. Eyes: Anicteric sclerae, conjunctivae clear. ENT: Nasal septum midline, oral mucosa moist. Neck supple, no JVD noticed. Respiratory: Bilaterally diminished breath sounds. No use of accessory muscles of respiration. No adventitious breath sounds. Cardiovascular: S1, S2 heard. Regular rate and rhythm. Abdomen: Soft, nontender, and nondistended. Bowel sounds positive in all 4 quadrants. Genitourinary: Deferred. Extremities: No cyanosis, no clubbing, no edema. Left knee surgical dressing. Peripheral pulses palpable. Neurologic: Cranial nerves II through XII grossly intact. The patient is awake, alert, and oriented. Skin: Normal skin turgor. No skin rashes. Labs & Vitals per chart ASSESSMENT & PLAN 68-year-old female with comorbidities including hyperthyroidism, dyslipidemia, and left knee osteoarthritis who underwent a left total knee arthroplasty and was admitted to inpatient setting for further monitoring. 1. Left knee osteoarthritis. -Status post left total knee arthroplasty on 09/19/2018. -Continue pain control. -Weightbearing and physical therapy as per orthopedic surgery. -Anticoagulation as per orthopedic surgery. 2. Hyperthyroidism. -Continue Tapazole. 3. Dyslipidemia. -Continue statins. -Fasting lipid panel satisfactory. CODE STATUS: Full code. Diet: Regular diet. DVT prophylaxis: As per orthopedic surgery. The patient is medically stable to be discharged. Thank you Dr. Alfonso for allowing us to take part in this patient's care. The patient was seen in collaboration with Dr. Mckenzie. Consultation Date/Type/Reason Admit Date/Time Sep 19, 2018 at 05:15 Initial Consult Date 09/19/18 Type of Consult Medical. Reason for Consultation Medical management. Requesting Provider: JOSEF ALFONSO MD Date/Time of Note DATE: 09/22/18 TIME: 09:05 Exam/Review of Systems Exam Vitals Vital Signs Date Temp Pulse Resp B/P (MAP) Pulse Ox O2 O2 Flow FiO2 Time Delivery Rate 09/22/18 98.0 93 18 114/64 94 Room Air 08:00 (81) 09/19/18 2.0 14:06 Intake and Output 09/21/18 09/21/18 09/22/18 1414:59 22:59 06:59 IntakeIntake Total 500 ml OutputOutput Total 1 ml BalanceBalance -1 ml 500 ml Results Result Diagram: 09/22/187 09/22/18 0427 Results 24hrs Laboratory Tests Test 09/22/18 04:27 White Blood Count 10.0 # Red Blood Count 3.01 L Hemoglobin 8.6 L Hematocrit 27.1 L Mean Corpuscular Volume 90.0 Mean Corpuscular Hemoglobin 28.6 L Mean Corpuscular Hemoglobin Concent 31.7 L Red Cell Distribution Width 13.8 Platelet Count 245 Mean Platelet Volume 10.9 H Immature Granulocytes % 0.200 Neutrophils % 62.8 Lymphocytes % 27.7 Monocytes % 7.6 Eosinophils % 1.4 Basophils % 0.3 Nucleated Red Blood Cells % 0.0 Immature Granulocytes # 0.020 Neutrophils # 6.3 Lymphocytes # 2.8 Monocytes # 0.8 Eosinophils # 0.1 Basophils # 0.0 Nucleated Red Blood Cells # 0.0 Sodium Level 137 Potassium Level 3.8 Chloride Level 101 Carbon Dioxide Level 31 Anion Gap 5 Blood Urea Nitrogen 14 Creatinine 0.51 Est Glomerular Filtrat Rate mL/min > 60 Glucose Level 102 Calcium Level 8.1 L Medications Medication Current Medications Lactated Ringer's 1,000 ml @ 80 mls/hr [id number] IV Last administered on 09/19/18at 23:54; Admin Dose 80 MLS/HR; Start 09/19/18 at 11:05 IV Flush (NS 3 ml) 3 ml PER PROTOCOL IV ; Start 09/19/18 at 11:30 Oxycodone HCl (Roxicodone) 15 mg Q4H PRN PO .PAIN Last administered on 09/20/18at 11:15; Admin Dose 15 MG; Start 09/19/18 at 11:30 Oxycodone HCl (Roxicodone) 10 mg Q4H PRN PO .PAIN Last administered on 09/20/18a t 06:17; Admin Dose 10 MG; Start 09/19/18 at 11:30 Oxycodone HCl (Roxicodone) 5 mg Q4H PRN PO .PAIN Last administered on 09/21/18at 19:26; Admin Dose 5 MG; Start 09/19/18 at 11:30 Hydromorphone HCl (Dilaudid) 1 mg Q3H PRN IV .BREAKTHROUGH PAIN Last administered on 09/20/18 09:22; Admin Dose 1 MG; Start 09/19/18 at 11:30 Acetaminophen (Tylenol Tab) 1,000 mg Q8 PO Last administered on 09/22/18 0 6:25; Admin Dose 1,000 MG; Start 09/20/18 at 14:00 Ondansetron HCl (Zofran Inj) 4 mg Q4H PRN IV NAUSEA/VOMITING; Start 09/20/18 at 11:30 Gabapentin (Neurontin) 300 mg QHS PO Last administered on 09/21/18 21:36; Admin Dose 300 MG; Start 09/19/18 at 21:00 Pantoprazole (Protonix Tab) 40 mg DAILY@06 PO Last administered on 09/22/18 06:25; Admin Dose 40 MG; Start 09/21/18 at 06:00 Docusate Sodium (Colace) 200 mg BID PO Last administered on 09/22/18 08:53; Admin Dose 200 MG; Start 09/20/18 at 09:00; Stop 09/23/18 at 08:59 Simethicone (Mylicon) 80 mg TID PRN PO .GAS; Start 09/19/18 at 11:30 Senna/Docusate Sodium (Senokot-S) 2 tab BID PRN PO .CONSTIPATION Last administered on 09/21/18 09:00; Admin Dose 2 TAB; Start 09/19/18 at 11:30 Magnesium Hydroxide (Milk Of Mag) 30 ml HS PRN PO .CONSTIPATION Last administered on 09/21/18 09:00; Admin Dose 30 ML; Start 09/19/18 at 11:30 Bisacodyl (Dulcolax Supp) 10 mg DAILY PRN [place] .CONSTIPATION Last administered on 09/21/18 16:47; Admin Dose 10 MG; Start 09/19/18 at 11:30 Sodium Biphosphate/ Sodium Phosphate (Fleet Enema) 133 ml DAILY PRN [place] .CONSTIPATION; Start 09/19/18 at 11:30 Diphenhydramine HCl (Benadryl) 25 mg Q4H PRN IV .ITCHING; Start 09/19/18 at 11:30 Naloxone HCl (Narcan) 0.2 mg Q2M PRN IV .RESP RATE; Start 09/19/18 at 11:30 Bethanechol Chloride (Urecholine) 25 mg URINARY CATH D/C PRN PO UNABLE TO VOID; Start 09/19/18 at 11:30 Aspirin (Halfprin) 81 mg BID PO Last administered on 09/22/18 08:53; Admin Dose 81 MG; Start 09/20/18 at 09:00 Ascorbic Acid (Vitamin C) 500 mg DAILY PO Last administered on 09/22/18 08:53; Admin Dose 500 MG; Start 09/20/18 at 09:00 Calcium Carbonate (Caltrate-600) 600 mg DAILY PO Last administered on 09/20/18 09:14; Admin Dose 600 MG; Start 09/20/18 at 09:00 Methimazole (Tapazole) 10 mg DAILY PO Last administered on 09/22/18 08:54; Admin Dose 10 MG; Start 09/20/18 at 09:00 Nortriptyline HCl (Aventyl) 10 mg HS PO Last administered on 09/20/18 21:17; Admin Dose 10 MG; Start 09/19/18 at 21:00 Atorvastatin Calcium (Lipitor) 20 mg DAILY@21 PO Last administered on 09/21/18 21:36; Admin Dose 20 MG; Start 09/19/18 at 21:00 Polyethylene Glycol (Miralax) 17 gm BID PO Last administered on 09/22/18 08:54; Admin Dose 17 GM; Start 09/21/18 at 13:30 JARRED SALMERON NP Sep 22, 2018 09:06
[2018-09-22 14:30] VITALS: BP 120/66; PULSE 90; RESP 18
== END 2018-09-22 15:43 | disposition home health service (06) ==
LOC: REC 05:15 → INTOOBSV 05:15 → EDSTATUS 07:30 → MS1 14:49
PROVIDERS: ADMIT Orthopaedic Surgery Adult Reconstructive Orthopaedic Surgery; ATTEND Orthopaedic Surgery Adult Reconstructive Orthopaedic Surgery
DX: M17.12 Unilateral primary osteoarthritis, left knee (principal); E05.90 Thyrotoxicosis, unspecified without thyrotoxic crisis or storm; E78.5 Hyperlipidemia, unspecified
CPT/HCPCS: 27447; 73560; 80048; 80061; 81001; 83735; 84100; 84439; 84443; 85025; 86850; 86900; 86901; 87081; 87086; 88304; 88311; 97116; 97161; 97165; 97530; C1713; G0378; J0131; J0171; J0690; J0735; J1100; J1170; J1885; J2250; J2405; J2795; J3010; J7120; 99217; J2370

== ENCOUNTER → 2018-10-02 | Outpatient (CLI) | payer MEDICARE, OTHER ==
[~2018-10-02] MED LIST changes: +ASCO500C7 PO; +ASPI-1044 PO; +CALC500T91 PO; +CHOL100062 PO; +CRES5 PO; +GABA300C16 PO; -MELOXICAM; +METH10TA5 PO; +NORT10CA2 PO; +OXYC-481 PO; +VITA200C45 PO
--- NOTE | 2018-10-02 15:24 | CONS ---
Consult Date/Type/Reason Admit Date/Time Initial Consult Date Date/Time of Note DATE: 10/02/18 TIME: 15:20 Subjective DOS: 09/19/2018 Procedure: Left TKA 2 weeks s/p left TKA who returns today for follow up. The patient is doing well overall. Pain is minimal. Denies F/C. Denies N/T. Denies any drainage from the incision. Her home health physical therapy starts today Narcotic Pain medication: 1 oxycodone every 8 hours. Patient was only dispensed half the prescription. She is currently out and requesting more pain medication. Gait Aids: Walker Pain better than before surgery: Not yet but improving Pleased with outcome. Objective Vitals Weight: 180 pounds Height: 5 feet 4 inches Temperature: 98.4 Heart Rate: 116 Blood Pressure: 123/72 Respiratory Rate: 16 Exam General: Alert, oriented x3. No Acute Distress. Heart: Regular rate and rhythm. Lungs: No respiratory distress. No accessory muscle use. Left lower Extremity: Incision clean, dry, intact. No skin breakdown, no surrounding erythema. Sensation intact to light touch in a sural, saphenous, deep peroneal, superficial peroneal, medial and lateral plantar nerve distribution. Motor is intact, patient able to dorsiflex and plantarflex ankle and extend and flex great toe. Dorsalis Pedis pulse +2, Brisk capillary refill. Compartments are soft. ROM: Extension: 5 Flexion: 60 Varus/ Valgus Stability: Stable in extension, flexion, and throughout range of motion A/P Stability: Stable Gait: Moderate pace. Mild antalgic. Walker gait aid. Results/Medications Home Meds Active Scripts Aspirin Delayed Release (Aspirin Delayed Release) 81 Mg Tablet.dr, 81 MG PO BID for 42 Days, #84 TAB Prov:JOSEF MARKS MD 09/22/18 Oxycodone Hcl* (IR) (Roxicodone*) 5 Mg Tab, 5 MG PO Q4H PRN for .PAIN for 14 Days, TAB Prov:JOSEF MARKS MD 09/20/18 Gabapentin* (Gabapentin*) 300 Mg Capsule, 300 MG PO QHS for 30 Days, CAP Prov:JOSEF MARKS MD 09/20/18 Reported Medications Calcium Carbonate ([id number]) 500 Mg Tablet, 600 MG PO DAILY, TAB 09/19/18 Ascorbic Acid* (Vitamin C*) 500 Mg Capsule.sa, 500 MG PO DAILY, CAP 09/19/18 Cholecalciferol* (Vitamin D3*) 1,000 Unit Tablet, 25 MCG PO DAILY, TAB 09/19/18 Vitamin E* (Vitamin E*) 200 Unit Capsule, 180 MG PO DAILY, CAP 09/19/18 Nortriptyline Hcl* (Nortriptyline Hcl*) 10 Mg Capsule, 10 MG PO HS, CAP 09/19/18 Rosuvastatin Calcium* (Crestor*) 5 Mg Tablet, 5 MG PO QHS, #30 TAB 09/19/18 Methimazole* (Methimazole*) 10 Mg Tablet, 10 MG PO DAILY, TAB 09/19/18 Imaging Xrays obtained in clinic today and personally reviewed by myself: Bilateral AP and merchant views and a dedicated lateral of the left knee demonstrates left knee s/p TKA. Components in good position and alignment. No signs of wear, osteolysis, loosening, component failure, or fracture. No acute complications. Assessment/Plan Hospital Course (Demo Recall) 68-year-old female doing well 2 weeks s/p left TKA. She is having some difficulty with flexion but this will improve in time. Secondary to this the patient is having difficulty sitting on a lower toilet seat and is requesting an elevated toilet seat. I think this is a good plan and will assist her in her activities of daily living. I reviewed range of motion exercise with her and emphasized the importance. - Elevated toilet seat - Prescribed oxycodone 5 mg, 40 tablets - DVT Prophylaxis: Aspirin 81 mg twice daily - FU 4 weeks for repeat clinical and radiographic exam - Antibiotic dental prophylaxis for any cleaning or procedure JOSEF MARKS MD Oct 02, 2018 15:24
--- NOTE | 2018-10-03 18:25 | RADRPT ---
PROCEDURE: XR Knees. CLINICAL INDICATION: Bilateral knee pain. TECHNIQUE: Total of eight views. Weightbearing frontal, oblique, and lateral views of the both kne es. Patellar views of both knees. COMPARISON: Left knee radiographs dated 09/19/2018. Bilateral lower extremity radiographs dated 02/2019. FINDINGS: On the right side, there are degenerative changes with medial joint compartment narrowing and osteoph ytes arising from all 3 joint compartment margins. There is no right knee joint effusion. On the left side, there is a left knee total arthroplasty. This appears satisfactory with no fracture , dislocation, or loosening. Anterior skin kamran are noted. Fluid is present in the left knee joint . There is no lytic or blastic lesion. IMPRESSION: 1. Moderate degenerative changes of the right knee. 2. Satisfactory postoperative appearance of the left knee. 3. Left knee joint effusion. RPTAT: QQ .Clifton Eagle MD, MD Date Time Electronically viewed and signed by .Clifton Eagle MD, MD on 10/03/2018 18:24 .R/
== END | disposition home or self-care (01) ==
LOC: HKI 14:18
PROVIDERS: ATTEND Orthopaedic Surgery Adult Reconstructive Orthopaedic Surgery
DX: Z09 Encounter for follow-up examination after completed treatment for conditions other than malignant neoplasm (principal); Z96.652 Presence of left artificial knee joint
CPT/HCPCS: 73564

== ENCOUNTER → 2018-10-30 | Outpatient (CLI) | payer MEDICARE, OTHER ==
--- NOTE | 2018-10-30 16:18 | CONS ---
Consult Date/Type/Reason Admit Date/Time Initial Consult Date Date/Time of Note DATE: 10/30/18 TIME: 16:11 Subjective DOS: 09/19/2018 Procedure: Left primary TKA 6 weeks s/p left primary TKA who returns today for follow up. The patient is doing well overall. Pain is minimal. Denies F/C. Denies N/T. Denies any drainage from the incision. Does continue to have some stiffness although significantly improved. Home therapy is about to and. Narcotic Pain medication: None Gait Aids: Cane Pain better than before surgery: Yes Pleased with outcome. Objective Vitals Weight: 165 pounds Height: 5 foot 4 inches Temperature: 90.4 Heart Rate: 94 Blood Pressure: 133/68 Respiratory Rate: 12 Exam General: Alert, oriented x3. No Acute Distress. Heart: Regular rate and rhythm. Lungs: No respiratory distress. No accessory muscle use. Left lower Extremity: Incision clean, dry, intact. No skin breakdown, no surrounding erythema. Sensation intact to light touch in a sural, saphenous, deep peroneal, superficial peroneal, medial and lateral plantar nerve distribution. Motor is intact, patient able to dorsiflex and plantarflex ankle and extend and flex great toe. Dorsalis Pedis pulse +2, Brisk capillary refill. Compartments are soft. ROM: Extension: 3 Flexion: 90 Varus/ Valgus Stability: Stable in extension, flexion, and throughout range of motion A/P Stability: Stable Gait: Moderate pace. Mildly antalgic on the left with significant varus thrust on the right. Cane for gait aid. Results/Medications Home Meds Active Scripts Aspirin Delayed Release (Aspirin Delayed Release) 81 Mg Tablet.dr, 81 MG PO BID for 42 Days, #84 TAB Prov:JOSEF MARKS MD 09/22/18 Oxycodone Hcl* (IR) (Roxicodone*) 5 Mg Tab, 5 MG PO Q4H PRN for .PAIN for 14 Days, TAB Prov:JOSEF MARKS MD 09/20/18 Gabapentin* (Gabapentin*) 300 Mg Capsule, 300 MG PO QHS for 30 Days, CAP Prov:JOSEF MARKS MD 09/20/18 Reported Medications Calcium Carbonate ([id number]-[id number]) 500 Mg Tablet, 600 MG PO DAILY, TAB 09/19/18 Ascorbic Acid* (Vitamin C*) 500 Mg Capsule.sa, 500 MG PO DAILY, CAP 09/19/18 Cholecalciferol* (Vitamin D3*) 1,000 Unit Tablet, 25 MCG PO DAILY, TAB 09/19/18 Vitamin E* (Vitamin E*) 200 Unit Capsule, 180 MG PO DAILY, CAP 09/19/18 Nortriptyline Hcl* (Nortriptyline Hcl*) 10 Mg Capsule, 10 MG PO HS, CAP 09/19/18 Rosuvastatin Calcium* (Crestor*) 5 Mg Tablet, 5 MG PO QHS, #30 TAB 09/19/18 Methimazole* (Methimazole*) 10 Mg Tablet, 10 MG PO DAILY, TAB 09/19/18 Imaging Xrays obtained in clinic today and personally reviewed by myself: Bilateral AP and merchant views and a dedicated lateral of the left knee demonstrates left knee s/p TKA. Components in good position and alignment. No signs of wear, osteolysis, loosening, component failure, or fracture. No acute complications. Assessment/Plan Assessment/Plan (Daily) 68-year-old female doing well 6 weeks s/p left TKA -Begin outpatient physical therapy focusing on range of motion and strength - DVT Prophylaxis: May discontinue - FU 6 weeks for repeat clinical and radiographic exam - Antibiotic dental prophylaxis for any cleaning or procedure JOSEF MARKS MD Oct 30, 2018 16:18
--- NOTE | 2018-11-01 10:17 | RADRPT ---
PROCEDURE: XR knees CLINICAL INDICATION: Knee pain. TECHNIQUE: Three weightbearing views of the bilateral knees were obtained. COMPARISON: 10/02/2018. FINDINGS: Right knee: There is no acute fracture dislocation. Osseous structures are intact. There are moderat e osteoarthritic changes of the knee, most notable at the medial tibio-femoral compartment. There is unchanged small knee joint effusion. Left knee: There is no acute fracture dislocation. There are stable postsurgical changes of the tota l knee arthroplasty. Hardware appears intact. There is a moderate size knee joint effusion, unchanged . IMPRESSION: 1. Moderate right knee osteoarthritis, most notable at the medial tibio-femoral compartment. 2. Stable postsurgical changes of total left knee arthroplasty. 3. Small right knee joint effusion, unchanged. 4. Moderate left knee joint effusion, unchanged. RPTAT: DD Physician Ileana Date Time Electronically viewed and signed by Physician Ileana on 11/01/2018 10:17 /
== END | disposition home or self-care (01) ==
LOC: HKI 14:02
PROVIDERS: ATTEND Orthopaedic Surgery Adult Reconstructive Orthopaedic Surgery
DX: Z09 Encounter for follow-up examination after completed treatment for conditions other than malignant neoplasm (principal); Z96.652 Presence of left artificial knee joint; Z79.82 Long term (current) use of aspirin

== ENCOUNTER → 2018-12-04 | Outpatient (CLI) | payer MEDICARE, OTHER ==
--- NOTE | 2018-12-04 17:02 | RADRPT ---
PROCEDURE: XR Knees. CLINICAL INDICATION: Bilateral knee pain. TECHNIQUE: Total of six views. Frontal, oblique, and lateral views of both knees. COMPARISON: 10/30/2018. FINDINGS: Right knee: There is no acute fracture dislocation. Osseous structures are intact. There are moderate osteoarthritic changes of the knee, most notable at the medial tibio-femoral compartment. There is u nchanged small knee joint effusion. Left knee: There is no acute fracture dislocation. There are stable postsurgical changes of the total knee arthroplasty. Hardware appears intact. There is a very small joint effusion, smaller than seen previously. IMPRESSION: 1. Moderate right knee osteoarthritis, most notable at the medial tibio-femoral compartment, unchange d. 2. Stable postsurgical changes of total left knee arthroplasty. 3. Small right knee joint effusion, unchanged. 4. Much smaller left knee joint effusion. RPTAT: QQ .Clifton Eagle MD, MD Date Time Electronically viewed and signed by .Clifton Eagle MD, MD on 12/04/2018 17:01 .R/
--- NOTE | 2018-12-04 17:17 | CONS ---
Consult Date/Type/Reason Admit Date/Time Initial Consult Date Date/Time of Note DATE: 12/04/18 TIME: 17:14 Subjective DOS: 09/19/2018 Procedure: Left TKA 12 weeks s/p left TKA who returns today for follow up. The patient is doing well overall. Pain is minimal. Denies F/C. Denies N/T. Denies any drainage from the incision. She unfortunately has only gone to for physical therapy sessions. She does note stiffness. Narcotic Pain medication: No Gait Aids: No Pain better than before surgery: Yes Pleased with outcome. Objective Exam General: Alert, oriented x3. No Acute Distress. Heart: Regular rate and rhythm. Lungs: No respiratory distress. No accessory muscle use. Left lower Extremity: Incision healed. No skin breakdown, no surrounding erythema. Sensation intact to light touch in a sural, saphenous, deep peroneal, superficial peroneal, medial and lateral plantar nerve distribution. Motor is intact, patient able to dorsiflex and plantarflex ankle and extend and flex great toe. Dorsalis Pedis pulse +2, Brisk capillary refill. Compartments are soft. ROM: Extension: 5 Flexion: 80 Varus/ Valgus Stability: Stable in extension, flexion, and throughout range of motion A/P Stability: Stable Gait: moderate pace. Minimally antalgic. No gait aid. Results/Medications Home Meds Active Scripts Aspirin Delayed Release (Aspirin Delayed Release) 81 Mg Tablet.dr, 81 MG PO BID for 42 Days, #84 TAB Prov:JOSEF MARKS MD 09/22/18 Oxycodone Hcl* (IR) (Roxicodone*) 5 Mg Tab, 5 MG PO Q4H PRN for .PAIN for 14 Days, TAB Prov:JOSEF MARKS MD 09/20/18 Gabapentin* (Gabapentin*) 300 Mg Capsule, 300 MG PO QHS for 30 Days, CAP Prov:JOSEF MARKS MD 09/20/18 Reported Medications Calcium Carbonate ([id number]) 500 Mg Tablet, 600 MG PO DAILY, TAB 09/19/18 Ascorbic Acid* (Vitamin C*) 500 Mg Capsule.sa, 500 MG PO DAILY, CAP 09/19/18 Cholecalciferol* (Vitamin D3*) 1,000 Unit Tablet, 25 MCG PO DAILY, TAB 09/19/18 Vitamin E* (Vitamin E*) 200 Unit Capsule, 180 MG PO DAILY, CAP 09/19/18 Nortriptyline Hcl* (Nortriptyline Hcl*) 10 Mg Capsule, 10 MG PO HS, CAP 09/19/18 Rosuvastatin Calcium* (Crestor*) 5 Mg Tablet, 5 MG PO QHS, #30 TAB 09/19/18 Methimazole* (Methimazole*) 10 Mg Tablet, 10 MG PO DAILY, TAB 09/19/18 Imaging Xrays obtained in clinic today and personally reviewed by myself: Bilateral AP and merchant views and a dedicated lateral of the left knee demonstrates left knee s/p TKA. Components in good position and alignment. No signs of wear, osteolysis, loosening, component failure, or fracture. No acute complications. Assessment/Plan Hospital Course (Demo Recall) 68-year-old female 12 weeks s/p left TKA. She is doing well from a pain standpoint. However she is very stiff. Her range of motion actually decreased from last visit. She has not gone to many physical therapy sessions. I reviewed stretching exercises with her in clinic today and stressed importance for physical therapy and stretching exercises. -Continue physical therapy - DVT Prophylaxis: Discontinued - FU 3 months for repeat clinical and radiographic exam - Antibiotic dental prophylaxis for any cleaning or procedure JOSEF MARKS MD Dec 04, 2018 17:17
== END | disposition home or self-care (01) ==
LOC: HKI 13:41
PROVIDERS: ATTEND Orthopaedic Surgery Adult Reconstructive Orthopaedic Surgery
DX: Z47.1 Aftercare following joint replacement surgery (principal); Z96.652 Presence of left artificial knee joint
CPT/HCPCS: 73562; G0463